=== PATIENT | male | born 1950 | race Caucasian/White ===

== ENCOUNTER 2019-08-20 07:15 | Outpatient (RCR) | payer MEDICARE, MEDICAID, SELFPAY | END 2019-08-21 23:59 | disposition home or self-care (01) | LOC: RAD 07:15 | PROVIDERS: Family Provider Family Medicine; PCP Registered Nurse; Visit Provider Nurse Practitioner Family | DX: L97.822 Non-pressure chronic ulcer of other part of left lower leg with fat layer exposed (principal); S61.021A Laceration with foreign body of right thumb without damage to nail, initial encounter; W27.8XXA Contact with other nonpowered hand tool, initial encounter | CPT/HCPCS: 87070; 87077; 87186; 87205; 99204; 99214 ==

== ENCOUNTER 2019-09-16 08:28 | Outpatient (RCR) | payer MEDICARE, MEDICAID, SELFPAY | END 2019-09-21 23:59 | disposition home or self-care (01) | LOC: WOUND 08:28 | PROVIDERS: Family Provider Family Medicine; PCP Registered Nurse; Visit Provider Nurse Practitioner Family | DX: S81.002A Unspecified open wound, left knee, initial encounter (principal); X58.XXXA Exposure to other specified factors, initial encounter; L08.9 Local infection of the skin and subcutaneous tissue, unspecified | CPT/HCPCS: 99212; 99213; 99214; G0463 ==

== ENCOUNTER → 2019-09-27 11:00 | Outpatient (BNVA) | payer MEDICARE, MEDICAID, SELFPAY | PROVIDERS: Family Provider Family Medicine; PCP Registered Nurse; Visit Provider Registered Nurse | DX: I10 Essential (primary) hypertension (principal); E78.5 Hyperlipidemia, unspecified; E03.9 Hypothyroidism, unspecified; M67.911 Unspecified disorder of synovium and tendon, right shoulder; I25.810 Atherosclerosis of coronary artery bypass graft(s) without angina pectoris | CPT/HCPCS: 80053; 80061; 84443; 85025 ==

== ENCOUNTER → 2020-02-21 10:16 | Outpatient (BNVA) | payer MEDICARE, MEDICAID, SELFPAY | PROVIDERS: Family Provider Family Medicine; PCP Registered Nurse; Visit Provider Registered Nurse | DX: I10 Essential (primary) hypertension (principal); M25.541 Pain in joints of right hand; M25.542 Pain in joints of left hand | CPT/HCPCS: 80053; 85025; 85651; 86140; 86431 ==

== ENCOUNTER → 2020-03-23 11:30 | Outpatient (BNVA) | payer MEDICARE, MEDICAID, SELFPAY | PROVIDERS: Family Provider Family Medicine; PCP Registered Nurse; Visit Provider Registered Nurse | DX: L02.416 Cutaneous abscess of left lower limb (principal); M25.541 Pain in joints of right hand; M25.542 Pain in joints of left hand | CPT/HCPCS: 84450; 87070; 87077; 87186 ==

== ENCOUNTER 2020-04-10 14:00 | Outpatient (CLI) | payer MEDICARE, MEDICAID, SELFPAY | END 2020-04-10 14:01 | disposition home or self-care (01) | LOC: WOUND 14:01 | PROVIDERS: Family Provider Family Medicine; PCP Registered Nurse; Visit Provider Thoracic Surgery (Cardiothoracic Vascular Surgery) | DX: L97.822 Non-pressure chronic ulcer of other part of left lower leg with fat layer exposed (principal); L97.512 Non-pressure chronic ulcer of other part of right foot with fat layer exposed; M79.671 Pain in right foot; L53.9 Erythematous condition, unspecified; L97.519 Non-pressure chronic ulcer of other part of right foot with unspecified severity; M77.31 Calcaneal spur, right foot | CPT/HCPCS: 11042; 11043; 36415; 73630; 80048; 83036; 85025; 85651; 87070; 87077; 87176; 87186; 87205; G0463; L3260 ==

== ENCOUNTER 2020-04-10 16:55 | Outpatient (CLI) | payer MEDICARE, MEDICAID, SELFPAY ==
--- NOTE | 2020-04-10 | XRR_ITS ---
PROCEDURE INFORMATION: Exam: XR Right Foot Complete Exam date and time: 04/10/2020 5:09 PM Age: 69 years old Clinical indication: Pain and condition or disease; Other: Redness, nonhealing ulcer; Foot; Right; Additional info: Pain, redness, nonhealing ulcer TECHNIQUE: Imaging protocol: XR Right foot. Views: Frontal, lateral, and oblique views. COMPARISON: No relevant prior studies available. FINDINGS: Bones/joints: No destructive bony process identified. Medial and lateral articular marginal hypertrophy of the 1st metatarsophalangeal joint with medial and lateral para-articular ossifications. Hypertrophy of the lateral 1st metatarsophalangeal joint sesamoid. A moderate plantar calcaneal ossified spur is present. Soft tissues: Mild medial soft tissue swelling at the 1st metatarsophalangeal joint. Severe Achilles' tendon enthesis of the calcaneus with tendon calcification. XR/XR foot RT min 3V* [id number] IMPRESSION: 1. No destructive bony process identified. 2. Plantar calcaneal spur. 3. Achilles tendon insertional enthesopathy/chronic tendinopathy.
[2020-04-10 17:55] LABS: Basophils # 0.1 10^3/uL (0.0-0.1); Basophils % 0.7 %; Eosinophils # 0.1 10^3/uL (0.0-0.8); Eosinophils % 0.8 %; Hematocrit 40.6 % (42.0-52.0); Lymphocytes # 2.4 10^3/uL (0.8-4.8); Lymphocytes % 32.9 %; Mean Corpuscular Volume 93.8 fL (80-94); Mean Platelet Volume 8.8 fL (7.4-10.4); Monocytes # 0.9 10^3/uL (0.2-0.9); Monocytes % 12.5 %; Neutrophils # 3.74 10^3/uL (1.8-7.7); Neutrophils % 52.1 %; Nucleated Red Blood Cells % 0 %; Platelet Count 408 10^3/cmm (130-400); Red Blood Count 4.33 10^6/uL (4.1-5.3); Red Cell Distribution Width 14.4 % (12.1-15.1); White Blood Count 7.2 10^3/uL (4.0-10.0)
[2020-04-10 18:10] LABS: Estmated Average Glucose 123; Hemoglobin A1C 5.9 % (4.0-6.0)
[2020-04-10 18:28] LABS: Blood Urea Nitrogen 11 mg/dL (8-23); Calcium 9.1 mg/dL (8.5-10.5); Carbon Dioxide 25 mmol/L (22-29); Chloride 102 mmol/L (98-107); Glomerular Filtration Rate 96.1 mL/min (90-130); Glucose 107 mg/dL (65-115); Osmolality Calculated 286 mOsm/kg (285-295); Sodium 138 mmol/L (136-145)
[2020-04-10 19:32] LABS: Erythrocyte Sedimentation Rate 29 mm/hr (0-10)
== END 2020-04-10 16:56 | disposition home or self-care (01) ==
LOC: LAB 16:57 → RAD 16:58
PROVIDERS: Family Provider Family Medicine; PCP Registered Nurse; Visit Provider Thoracic Surgery (Cardiothoracic Vascular Surgery)
DX: M79.671 Pain in right foot (principal); L53.9 Erythematous condition, unspecified; L97.519 Non-pressure chronic ulcer of other part of right foot with unspecified severity; M77.31 Calcaneal spur, right foot
CPT/HCPCS: 36415; 73630; 80048; 83036; 85025; 85651

== ENCOUNTER → 2020-04-13 16:58 | Outpatient (BNVA) | payer MEDICARE, MEDICAID, SELFPAY | PROVIDERS: Family Provider Family Medicine; PCP Registered Nurse; Visit Provider Dermatology | DX: D48.9 Neoplasm of uncertain behavior, unspecified (principal) | CPT/HCPCS: 88304 ==

== ENCOUNTER 2020-04-17 14:00 | Outpatient (CLI) | payer MEDICARE, MEDICAID, SELFPAY | END 2020-04-17 14:01 | disposition home or self-care (01) | LOC: WOUND 14:02 | PROVIDERS: Family Provider Family Medicine; PCP Registered Nurse; Visit Provider Thoracic Surgery (Cardiothoracic Vascular Surgery) | DX: L97.522 Non-pressure chronic ulcer of other part of left foot with fat layer exposed (principal); L97.512 Non-pressure chronic ulcer of other part of right foot with fat layer exposed | CPT/HCPCS: 11042 ==

== ENCOUNTER 2020-04-27 14:26 | Outpatient (CLI) | payer MEDICARE, MEDICAID, SELFPAY | END 2020-04-27 14:27 | disposition home or self-care (01) | LOC: WOUND 14:27 | PROVIDERS: Family Provider Family Medicine; PCP Registered Nurse; Visit Provider Thoracic Surgery (Cardiothoracic Vascular Surgery) | DX: L97.822 Non-pressure chronic ulcer of other part of left lower leg with fat layer exposed (principal) | CPT/HCPCS: 11042 ==

== ENCOUNTER 2020-05-11 13:46 | Outpatient (CLI) | payer MEDICARE, MEDICAID, SELFPAY | END 2020-05-11 13:47 | disposition home or self-care (01) | LOC: WOUND 13:48 | PROVIDERS: Family Provider Family Medicine; PCP Registered Nurse; Visit Provider Nurse Practitioner Family | DX: L97.822 Non-pressure chronic ulcer of other part of left lower leg with fat layer exposed (principal) | CPT/HCPCS: 11042 ==

== ENCOUNTER 2020-05-25 14:03 | Outpatient (CLI) | payer MEDICARE, MEDICAID, SELFPAY ==
--- NOTE | 2020-05-25 15:54 | XRR_ITS ---
PROCEDURE INFORMATION: Exam: XR Left Knee Exam date and time: 05/25/2020 3:55 PM Age: 69 years old Clinical indication: Condition or disease; Other: Left knee abscess TECHNIQUE: Imaging protocol: XR Left knee. Views: 3 views. COMPARISON: No relevant prior studies available. FINDINGS: Bones/joints: There is a probable osteochondral body superimposed over the superior pole of the patella measuring 7 mm in size. On the lateral view, it also appears may be a subtle osteochondral body or fabella posterior to the femoral condyles measuring 6 mm in size. There is enthesopathy of the patella and anterior tibial tuberosity. There is a physiologic amount of fluid in the knee joint. There is no acute fracture or dislocation. Mild osteoarthritic changes are noted. Soft tissues: There is mild soft tissue edema. No foreign body. No gas in the soft tissues. XR/XR knee LT 3V* [id number] IMPRESSION: No acute bony abnormality. No osteomyelitis or fracture. There is enthesopathy.
== END 2020-05-25 14:04 | disposition home or self-care (01) ==
LOC: WOUND 14:04
PROVIDERS: Family Provider Family Medicine; PCP Registered Nurse; Visit Provider Thoracic Surgery (Cardiothoracic Vascular Surgery)
DX: L97.822 Non-pressure chronic ulcer of other part of left lower leg with fat layer exposed (principal); I96 Gangrene, not elsewhere classified
CPT/HCPCS: 11042; 73562

== ENCOUNTER 2020-06-29 13:24 | Outpatient (CLI) | payer MEDICARE, MEDICAID, SELFPAY | END 2020-06-29 13:25 | disposition home or self-care (01) | LOC: WOUND 13:25 | PROVIDERS: Family Provider Family Medicine; PCP Registered Nurse; Visit Provider Nurse Practitioner Family | DX: Z09 Encounter for follow-up examination after completed treatment for conditions other than malignant neoplasm (principal) | CPT/HCPCS: 99212 ==

== ENCOUNTER → 2020-12-06 13:59 | Outpatient (BNVA) | payer MEDICARE, MEDICAID, SELFPAY | PROVIDERS: Family Provider Family Medicine; PCP Registered Nurse; Visit Provider Registered Nurse | DX: E03.9 Hypothyroidism, unspecified (principal) | CPT/HCPCS: 84443 ==

== ENCOUNTER → 2021-03-13 00:01 | Outpatient (BNVA) | payer MEDICARE, MEDICAID, SELFPAY | PROVIDERS: Family Provider Family Medicine; PCP Registered Nurse; Visit Provider Registered Nurse | DX: I10 Essential (primary) hypertension (principal); E78.5 Hyperlipidemia, unspecified | CPT/HCPCS: 80053; 80061; 85025 ==

== ENCOUNTER 2021-03-29 11:05 | Outpatient (CLI) | payer MEDICARE, MEDICAID, SELFPAY ==
--- NOTE | 2021-03-29 11:16 | CT_ITS ---
WS: [id number] LDCT LUNG CANCER SCREENING TECHNIQUE: Noncontrast CT of the chest with coronal and sagittal reformatted images. CLINICAL INFORMATION: Z12.2 - Encounter for screening for malignant neoplasm of... COMPARISON: None. DLP: 53.4 mGy.cm DIvol: 1.[address] scans at [facility] use at least one of these dose optimization techniques: automat ed exposure control; mA and/or kV adjustment per patient size (includes targeted exams where dose is matched to clinical indication); or iterative reconstruction. FINDINGS: Mild chronic emphysematous changes. No acute pulmonary infiltrates. No focal pneumonia or pleural flu id. Small fibrotic opacity right lung apex measuring 3-4 mm. Adrenal glands are normal. Small esophag eal hiatal hernia. Aortic calcification. Coronary calcification. No mediastinal or hilar lymphadenopa thy. Hypertrophic changes thoracic spine. CT/CT lung screening [id number] IMPRESSION: LUNG-RADS: 2-Benign Appearance or Behavior FOLLOW UP: 12 Month: Continue annual screening with LDCT
== END 2021-03-29 11:06 | disposition home or self-care (01) ==
LOC: CT 11:06
PROVIDERS: PCP Registered Nurse; Visit Provider Registered Nurse
DX: Z12.2 Encounter for screening for malignant neoplasm of respiratory organs (principal); F17.210 Nicotine dependence, cigarettes, uncomplicated
CPT/HCPCS: 71271

== ENCOUNTER 2021-04-25 09:48 | Outpatient (CLI) | payer MEDICARE, MEDICAID, SELFPAY ==
--- NOTE | 2021-04-25 10:15 | USCV_ITS ---
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 Technologist: Ryanne Calderon Exam Location: [facility] [place] Indication: STENOSIS Risk Factors: Previous Vascular Surgery: Right Brachial BP: / Left Brachial BP: / Right Left Velocity (cm/s) Spectral Plaque Velocity (cm/s) Spectral Plaque Syst/Diast Broadening Syst/Diast Broadening 111.90/20.50 Prox CCA 67.60 / 22.50 102.50/21.40 Mid CCA 83.10 / 27.20 85.40/ 21.40 Distal CCA 323.20/ 87.00 64.20/ 16.00 Prox ICA 86.00 / 14.30 89.70/ 19.70 Mid ICA 63.90 / 20.60 78.90/ 19.40 Distal ICA 63.90 / 22.00 109.40 ECA 156.90 0.80 ICA/CCA 1.27 Antegrade Vertebral Antegrade 52.00/ 14.80 cm/s 44.70/ 10.60 cm/s Tri Subclavian Tri 165.6 181.8 0 0 CONCLUSIONS Right ICA stenosis <50%. Mild atheromatous plaque right carotid bulb/ICA. Left ICA stenosis <50%. Mild atheromatous plaque left carotid bulb/ICA. Normal antegrade Doppler flow noted in the right vertebral artery. Normal antegrade Doppler flow noted in the left vertebral artery. Nagi Arzola MD (Electronically Signed) Final Date: 26 April 2021 10:48 S
== END 2021-04-25 09:49 | disposition home or self-care (01) ==
LOC: US 09:50
PROVIDERS: PCP Registered Nurse; Visit Provider Registered Nurse
DX: I10 Essential (primary) hypertension (principal); I25.810 Atherosclerosis of coronary artery bypass graft(s) without angina pectoris; I65.23 Occlusion and stenosis of bilateral carotid arteries
CPT/HCPCS: 93880

== ENCOUNTER → 2022-01-25 11:08 | Outpatient (BNVA) | payer MEDICARE, MEDICAID, SELFPAY | PROVIDERS: PCP Registered Nurse; Visit Provider Registered Nurse | DX: I10 Essential (primary) hypertension (principal); E03.9 Hypothyroidism, unspecified; E78.5 Hyperlipidemia, unspecified | CPT/HCPCS: 80053; 80061; 84443; 85025 ==

== ENCOUNTER → 2022-05-14 08:28 | Outpatient (BNVA) | payer MEDICARE, MEDICAID, SELFPAY | PROVIDERS: PCP Registered Nurse; Visit Provider Orthopaedic Surgery | DX: M71.162 Other infective bursitis, left knee (principal); B96.89 Other specified bacterial agents as the cause of diseases classified elsewhere | CPT/HCPCS: 99213 ==

== ENCOUNTER → 2022-05-29 09:37 | Outpatient (BNVA) | payer MEDICARE, MEDICAID, SELFPAY | PROVIDERS: PCP Registered Nurse; Visit Provider Orthopaedic Surgery | DX: M70.40 Prepatellar bursitis, unspecified knee (principal) | CPT/HCPCS: 99212 ==

== ENCOUNTER → 2022-06-25 09:02 | Outpatient (BNVA) | payer MEDICARE, MEDICAID, SELFPAY | PROVIDERS: PCP Registered Nurse; Visit Provider Orthopaedic Surgery | DX: M70.42 Prepatellar bursitis, left knee (principal) | CPT/HCPCS: 99213 ==

== ENCOUNTER → 2022-06-28 10:55 | Outpatient (BNVA) | payer MEDICARE, MEDICAID, SELFPAY | PROVIDERS: PCP Registered Nurse; Visit Provider Internal Medicine Cardiovascular Disease | DX: I25.810 Atherosclerosis of coronary artery bypass graft(s) without angina pectoris (principal); I10 Essential (primary) hypertension; Z95.5 Presence of coronary angioplasty implant and graft; F17.210 Nicotine dependence, cigarettes, uncomplicated | CPT/HCPCS: 93005; 99214; Q3014 ==

== ENCOUNTER 2022-07-04 09:02 | Day surgery (SDC) | payer MEDICARE, MEDICAID, SELFPAY ==
[2022-07-03 12:56] VITALS: BMI 36.6
[2022-07-04] VITALS (8 sets, daily range): BP systolic 109–160; BP diastolic 60–90; PULSE 54–73; RESP 14–19; TEMP 36.2–36.5; O2SAT 94–100
[2022-07-04] MEDS: sodium chloride 0.9% 1,000 ML 30 ML IV (09:39)
--- NOTE | 2022-07-04 10:09 | ECG_ITS ---
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 Measurements Intervals [place] Rate: 50 P: 60 DE: 234 QRS: 34 QRSD: 110 T: 55 QT: 444 QTc: 408 Interpretive Statements SINUS BRADYCARDIA WITH FIRST DEGREE AV BLOCK No previous ECG available for comparison Electronically Signed On 07-04-2022 20:48:20 DATE PITTER by Anita Donnelly M.D. [email or web address] [id number]
--- NOTE | 2022-07-04 10:25 | P.ANESASSM_ITS ---
Pre-Anesthetic Assessment Height/Weight: Height 1.65 m Weight 99.79 kg Temp Pulse Resp BP Pulse Ox O2 Del Method 97.7 F 71 18 160/90 95 07/04/22 09:20 07/04/22 09:20 07/04/22 09:20 07/04/22 09:20 07/04/22 09:20 07/04/22 09:42 Preop Diagnosis: [place]-Schlatter's fragment left tibia Operation Date: 07/04/22 10:15 Proposed Procedures p left tibial tubercle ossicle excision/ 01695,M92.52(Left) - Etienne Garcia MD Familial anesthetic complications: None Was Beta Crow taken within 24 hours: N/A Was Clonidine taken within 24 hours: N/A Last intake: Intake Last Liquid Date 07/03/22 Last Liquid Time 17:00 Last Solid Date 07/03/22 Last Solid Time 17:00 Social Tobacco and No alcohol Exam alert, oriented x 3, clear to auscultation bilaterally and regular rate & rhythm Airway Mallampati: Class IV Dentition: other (no teeth) Pulmonary Chronic Obstructive Pulmonary Disease CV/HEM Coronary Artery Disease (stent in LAD), Hypertension and Myocardial Infarction GI Gastroesophageal Reflux Disease (patient denies having GERD) Metabolic Hyperlipidemia and Thyroid Disease Neuropsych Transient Ischemic Attack (2004) Anesthetic Plan ASA status: 3 Anesthesia: General Risk of > 500 ml blood loss (7ml/kg in children): No Medications/Allergies Home Medications Medication Instructions Recorded Confirmed Last Taken Type aspirin 81 mg tablet,delayed 81 mg PO DAILY 08/25/19 07/03/22 07/03/22 History release valsartan 160 mg tablet 160 mg PO DAILY #90 tabs 07/12/21 07/03/22 07/02/22 Rx sildenafil 50 mg tablet (Viagra) 50 mg PO DAILY PRN sexual activity 02/12/22 07/03/22 Unknown Rx 30 days #10 tabs acetaminophen 325 mg capsule 1,000 mg PO BID 06/28/22 07/03/22 07/03/22 History albuterol sulfate 90 mcg/actuation 1 inh inhalation QID 07/03/22 07/03/22 07/02/22 History aerosol inhaler amlodipine 10 mg tablet 10 mg PO DAILY 07/04/22 07/04/22 07/03/22 History atorvastatin 40 mg tablet 40 mg PO DAILY 07/04/22 07/04/22 07/03/22 History clopidogrel 75 mg tablet 75 mg PO DAILY 07/04/22 07/04/22 06/24/22 History fenofibrate 160 mg tablet 160 mg PO DAILY 07/04/22 07/04/22 07/03/22 History fluticasone furoate 100 1 inh inhalation DAILY 07/04/22 07/04/22 07/03/22 History mcg-vilanterol 25 mcg/dose inhalation powder (Breo Ellipta) levothyroxine 75 mcg tablet 75 mcg PO DAILY 07/04/22 07/04/22 07/03/22 History montelukast 10 mg tablet 10 mg PO DAILY 07/04/22 07/04/22 07/03/22 History Allergies Allergy/AdvReac Type Severity Reaction Status Date / Time codeine Allergy Unknown Unknown Verified 07/03/22 12:49 Penicillins Allergy Unknown Unknown Verified 07/03/22 12:49 tetanus and diphtheria Allergy Unknown Unknown Verified 07/03/22 12:49 toxoids Current Medications Generic Name Dose Route Start Last Admin Trade Name Freq PRN Reason Stop Dose Admin Sodium Chloride 1,000 mls @ 30 mls/hr 07/04/22 09:15 07/04/22 09:39 Sodium Chloride 0.9% IV 07/05/22 09:14 30 mls/hr .Q24H IGNACIO Administration PFSH Anesthesia Medical History (Updated 06/28/22 @ 11:09 by Varsha Nicole MD) Erectile dysfunction GERD (gastroesophageal reflux disease) History of nonmelanoma skin cancer HTN (hypertension) Seborrheic keratoses Surgical History History of back surgery S/P angioplasty S/P appendectomy S/P routine circumcision S/P vasectomy Family History Mother , Colon CA age 61 Hypertension Cancer Father , Liver CA age 61 Cancer Stroke Other CAD (coronary artery disease) Social History Smoking and tobacco status: current every day smoker cigarettes Packs smoked per day: 0.5 Alcohol intake: never Adopted: No Caregiver/support person: No Lives independently: No Household members: significant other Current occupational status: disabled History of recent travel: No Current gender identity: Male Data Anesthesia 07/04/22 09:36 BMP 07/04/22 09:36 Sodium 140 Chloride 105 Carbon Dioxide 23 BUN 10 Creatinine 0.7 Glucose 100 Calcium 9.1 Cardiac Studies: No Data to Display
--- NOTE | 2022-07-04 10:58 | W.PM.OPSUD ---
Surgery/Procedure H&P Update DATE OF PROCEDURE: July 04, 2022 DATE H&P PERFORMED: 06/25/22 H&P UPDATE INFORMATION: I have reviewed H&P completed within last 30 days PREOP DIAGNOSIS: [place]-Schlatter's fragment left tibia PLANNED PROCEDURE: Operation Date: 07/04/22 10:15 Proposed Procedures p left tibial tubercle ossicle excision/ 56495,M92.52(Left) - Etienne Garcia MD
--- NOTE | 2022-07-04 12:13 | PM.OP ---
Operative Report Date of procedure: July 04, 2022 Pre-op diagnosis: Preop Diagnosis [place]-Schlatter's fragment left tibia Post-op diagnosis: same Procedure done: Excision tibial tubercle prominence left knee Pathology: none sent Surgeon: Etienne Garcia Anesthesia: General Estimated blood loss (mL): 2 Tourniquet time (min): 12 Findings: The patient had prominent ossicle of bone anterior to the tibial tubercle beneath a area of bursal thickening. There was no suggestion of deep infection Condition: stable Disposition: PACU Brief History: Mr. Zheng is a 72-year-old male with recurrent infected bursitis over a prominent Drake slaughters ossicle above bone. He elected surgical excision to eliminate the bony prominence and prevent recurrent infection Procedure: The patient was taken to the operating room and given a general anesthesia. He is prepped and draped in supine position with his left leg exposed. A timeout was performed. The tourniquet was inflated 250 mmHg. A longitudinal incision was made 3 cm over the tibial tubercle. Dissection was carried down through the thickened bursal skin and the bursal tissue to the tibial tubercle. The prominent ossicle of bone was palpated. Dissection was carried down full thickness elevating the patellar tendon medially and laterally over a distance of approximately 6 mm in each direction over the prominent bone. The ossicle was removed and the more distal prominence of the tibial tubercle debrided flush. The knee was irrigated with saline. The patella tendon was closed with 2-0 Vicryl, burring stitches deep in the tendon. Subcutaneous tissues were closed with 2-0 Vicryl. The skin was closed with 3-0 Prolene.
[2022-07-04] MEDS: oxyCODONE 5 mg IR Tab/Cap PO (12:54)
--- NOTE | 2022-07-04 12:55 | ANE.PACU2 ---
Inpatient post-anesthesia follow up: Airway intact: Yes Vital signs: Temperature 97.4 F Pulse Rate 73 Respiratory Rate 18 Blood Pressure 109/62 Pulse Oximetry 95 Oxygen Delivery Me thod Room Air Oxygen Flow Rate 6 Fraction of Inspir ed Oxygen Hydration adequate: Yes Nausea and vomiting: No Pain level: 1 Mental status: Baseline
== END 2022-07-04 13:17 | disposition home or self-care (01) ==
PROVIDERS: PCP Registered Nurse; Visit Provider Orthopaedic Surgery
PROC: (CPT 27360; principal; 2022-07-04 10:05)
DX: M92.522 Juvenile osteochondrosis of tibia tubercle, left leg (principal); J44.9 Chronic obstructive pulmonary disease, unspecified; I25.10 Atherosclerotic heart disease of native coronary artery without angina pectoris; Z95.5 Presence of coronary angioplasty implant and graft; I10 Essential (primary) hypertension; I25.2 Old myocardial infarction; E78.5 Hyperlipidemia, unspecified; Z86.73 Personal history of transient ischemic attack (TIA), and cerebral infarction without residual deficits; Z79.82 Long term (current) use of aspirin; K21.9 Gastro-esophageal reflux disease without esophagitis; F17.210 Nicotine dependence, cigarettes, uncomplicated
CPT/HCPCS: 27360; 93005; J1100; J2405; J2704; J3010; J7030

== ENCOUNTER → 2022-07-16 09:33 | Outpatient (BNVA) | payer MEDICARE, MEDICAID, SELFPAY | PROVIDERS: PCP Registered Nurse; Visit Provider Registered Nurse | DX: I10 Essential (primary) hypertension (principal); E78.5 Hyperlipidemia, unspecified; E03.9 Hypothyroidism, unspecified; F17.210 Nicotine dependence, cigarettes, uncomplicated; Z12.2 Encounter for screening for malignant neoplasm of respiratory organs; Z00.00 Encounter for general adult medical examination without abnormal findings; Z71.89 Other specified counseling | CPT/HCPCS: 80053; 80061; 84443; 85025 ==

== ENCOUNTER → 2022-07-30 10:22 | Outpatient (BNVA) | payer MEDICARE, MEDICAID, SELFPAY | PROVIDERS: PCP Registered Nurse; Visit Provider Orthopaedic Surgery | DX: M70.42 Prepatellar bursitis, left knee (principal) | CPT/HCPCS: 99024 ==

== ENCOUNTER → 2023-03-07 10:12 | Outpatient (BNVA) | payer MEDICARE, MEDICAID, SELFPAY | PROVIDERS: PCP Registered Nurse; Visit Provider Internal Medicine Cardiovascular Disease | DX: R06.02 Shortness of breath (principal); I25.810 Atherosclerosis of coronary artery bypass graft(s) without angina pectoris; I10 Essential (primary) hypertension; Z95.5 Presence of coronary angioplasty implant and graft; F17.210 Nicotine dependence, cigarettes, uncomplicated | CPT/HCPCS: 99214 ==

== ENCOUNTER 2023-03-19 11:52 | Outpatient (CLI) | payer MEDICARE, MEDICAID, SELFPAY ==
--- NOTE | 2023-03-19 13:00 | USCV_ITS ---
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 Technologist: Lindy Colunga [place] [facility] [place]ication: CCA STENOSIS Risk Factors: Previous Vascular Surgery: Right Brachial BP: / Left Brachial BP: / Right Left Velocity (cm/s) Spectral Plaque Velocity (cm/s) Spectral Plaque Syst/Diast Broadening Syst/Diast Broadening 115.80/24.30 Prox CCA 60.10 / 22.70 Hetro 123.50/32.00 Mid CCA 96.60 / 28.60 Hetro 93.70/ 17.60 Distal CCA 394.30/ 86.80 Homo 110.30/25.40 Hetro Prox ICA 104.60/ 25.70 Hetro 115.80/30.90 Mid ICA 90.10 / 29.00 Hetro 115.30/31.50 Distal ICA 63.10 / 32.50 125.70 ECA 120.10 0.94 ICA/CCA 1.08 Antegrade Vertebral Antegrade 48.30/ 15.80 cm/s 44.40/ 11.80 cm/s Bi Subclavian Tri 108.4 114.4 0 0 FINDINGS Comparison:. 04/25/21. Abnormal left carotid artery, diffuse soft plaque and thickening with scattered calcifications. Distal CCA velocity is elevated. Parvus tardus waveform left ICA. Mild right carotid atherosclerosis. Antegrade vertebral arteries. CONCLUSIONS Diffuse left carotid disease with progression. Significant soft plaque with calcification. High grade stenosis distal CCA. Recommend evaluation by vascular surgery and carotid CTA. Right ICA stenosis < 50%. Dr. Saritha Montano DO (Electronically Signed) Final Date: 19 March 2023 14:16 S
== END 2023-03-19 11:53 | disposition home or self-care (01) ==
PROVIDERS: PCP Registered Nurse; Visit Provider Registered Nurse
DX: I65.23 Occlusion and stenosis of bilateral carotid arteries (principal)
CPT/HCPCS: 93880

== ENCOUNTER → 2023-04-01 14:05 | Outpatient (BNVA) | payer MEDICARE, MEDICAID, SELFPAY | PROVIDERS: PCP Registered Nurse; Referring Provider Registered Nurse; Visit Provider Thoracic Surgery (Cardiothoracic Vascular Surgery) | DX: I65.29 Occlusion and stenosis of unspecified carotid artery (principal); I10 Essential (primary) hypertension; F17.210 Nicotine dependence, cigarettes, uncomplicated | CPT/HCPCS: 99203 ==

== ENCOUNTER 2023-04-18 07:53 | Outpatient (CLI) | payer MEDICARE, MEDICAID, SELFPAY ==
--- NOTE | 2023-04-18 08:30 | CT_ITS ---
WS: [id number] CTA NECK TECHNIQUE: Contrast enhanced CTA of the neck with coronal and sagittal reformatted images and maximum intensity projection (MIP) images. NASCET criteria utilized. CLINICAL INFORMATION: carotid stenosis COMPARISON: Ultrasound carotid 03/19/2023 DLP: 427.[address] scans at [facility] use at least one of these dose optimization techniques: automated e xposure control; mA and/or kV adjustment per patient size (includes targeted exams where dose is matc hed to clinical indication); or iterative reconstruction. FINDINGS: RIGHT: RIGHT common carotid artery is patent. Mild atheromatous plaque RIGHT carotid bulb extending i nto the ICA. RIGHT ICA is patent to the skull base. Cavernous carotid calcification. LEFT: LEFT common carotid artery is patent. Circumferential smooth tapering with stenosis in the LEFT distal common carotid artery which remains patent. Stenosis measures approximately 50%. Moderate ath eromatous plaque LEFT carotid bulb extending to the ICA without significant stenosis. LEFT ICA is pat ent to the skull base. Cavernous carotid calcification. RIGHT dominant vertebral artery. Smaller but patent LEFT vertebral artery. Vertebral arteries are pat ent to the basilar junction. Both ICAs are patent at the skull base. Cavernous carotid calcification. Partially visualized intracr anial ambler of Hagen. Small A1 segments. Patent LEFT posterior communicating artery. Mastoid air cells are well aerated. Paranasal sinuses are well aerated. Noncalcified nodule RIGHT upp er lobe measuring 5 mm. Emphysematous changes in the lung apices. Normal posterior nasopharynx. Malaika l parapharyngeal fat. Parotid glands are normal. Normal submandibular glands. Mild spondylitic change s cervical spine. Disc osteophyte complexes at C5-C6 and C6-C7 with mild central canal stenosis. IMPRESSION: 1. No significant RIGHT ICA stenosis. 2. Smooth tapered narrowing in the distal LEFT common carotid artery with approximately 50% stenosis . No significant stenosis in the LEFT proximal ICA. LEFT ICA remains patent to the skull base. 3. RIGHT dominant vertebral artery. Both vertebral arteries are patent. 4. Noncalcified nodule RIGHT upper lobe measuring 5 mm. This is stable since the prior lung screenin g CT 03/29/21 5. LEFT carotid originates from the innominate.
[2023-04-18 08:39] LABS: Blood Urea Nitrogen 11 mg/dL (8-23)
[2023-04-18] MEDS: iohexol 350 mg/mL 500 mL Btl (per mL) IV (08:49)
== END 2023-04-18 07:54 | disposition home or self-care (01) ==
LOC: RAD 07:53
PROVIDERS: PCP Registered Nurse; Visit Provider Thoracic Surgery (Cardiothoracic Vascular Surgery)
DX: I65.23 Occlusion and stenosis of bilateral carotid arteries (principal); R91.1 Solitary pulmonary nodule
CPT/HCPCS: 70498; 82565; 84520; Q9967

== ENCOUNTER 2023-04-24 08:40 | Outpatient (CLI) | payer MEDICARE, MEDICAID, SELFPAY ==
[2023-04-24 09:22] VITALS: BMI 31.9
--- NOTE | 2023-04-24 09:29 | ECG_ITS ---
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 Interpretive Statements NAME OF STUDY: EXERCISE SESTAMIBI STRESS TEST INDICATION: EXERTIONAL SOB Baseline blood pressure of 141/68 mm Hg, heart rate of 50 beats per minute. EKG showed sinus rhythm, normal axis with nonspecific T wave inversion and biphasic T waves in lead II, 3, aVF V4 to V6. ??? The patient exercised for 7 minutes and 25 seconds on a modified Ted protocol. Patient attained a maximum heart rate of 132 beats per minute(88% of the maximum predicted heart rate) with a blood pressure at the peak exercise of 199/83 mm Hg. The EKG at the peak exercise revealed sinus tachycardia with no significant ST-T wave changes. Patient did not have any chest pain or any significant arrhythmis with the exercise??? During the recovery phase, there were no new changes. ??? Blood pressure at the end of the recovery phase was 163/81 mm Hg with a heart rate of 88 beats per minute. ??? CONCLUSION: 1. Normal EKG response to treadmill exercise. 2. No exercise-induced chest pain or cardiac arrhythmia. 3. Excellent exercise tolerance, attained a maximum of 9 METs. 4. Baseline hypertension with normal response to exercise. 5. Perfusion scan will be documented separately. Electronically Signed On 04-27-2023 9:29:24 DRY ICE MAKER by Varsha Nicole M.D. [id number]
--- NOTE | 2023-04-24 09:30 | NMCV_ITS ---
NM denise perf SPECT r/s* [id number] Cindy Zheng Age: 72 Gender: M : 1950 Exam Date: 04/24/2023 10:07 Ordering Phys: Varsha Nicole MD ([email or web address]) Technologist: KIMBERLY Lucero Exam Location: [facility] Indications: SHORTNESS OF BREATH, ATHEROSCLEROTIC HEART DISEASE STRESS TEST [facility] IMAGE PROTOCOL Rest/Stress 1 Exercise Day Radiopharmaceutical Dose (mCi) Administration Site Administered by Rest: Tc-99m 10.9 IV KIMBERLY Lucero Sestamibi Stress:Tc-99m 32.6 IV KIMBERLY Machado Sestamibi Rest: 24-Apr-2023 60 Discovery 630 Stress: 24-Apr-2023 15 Discovery 630 Radiopharmaceutical was injected at 85 % maximum heart rate. Images obtained in supine and prone position. SPECT RESULTS Technical Quality: Excellent Raw Data Analysis: Normal Image Corrections: No attenuation or motion correction applied Summed Stress Score: 1 Summed Rest Score: 2 Summed Difference Score: 1 PERFUSION FINDINGS SPECT images demonstrate homogeneous tracer distribution throughout the myocardium. FUNCTIONAL RESULTS (calculated via Gated SPECT) Stress Image LV EF (%): 70 Stress EDV (mL):102 TID: 0.73 Stress ESV (mL):31 FUNCTIONAL FINDINGS: The left ventricle is normal in size. Transient Ischemia Dilatation of 0.73. The left ventricular ejection fraction is normal with a value of 70%. There is normal left ventricular wall thickening. Normal end-diastolic and end-systolic volumes. IMPRESSIONS 1. Myocardial perfusion imaging is normal. 2. Overall left ventricular systolic function is normal without regional wall motion abnormalities, LVEF=70%. 3. EKG portion of the study will be reported separately. 4. Scan indicates low risk for cardiac events. Varsha Nicole MD (Electronically Signed) Final Date: 24 April 2023 16:43 S
[2023-04-24 11:49] VITALS: BP 163/81; PULSE 93
== END 2023-04-24 08:41 | disposition home or self-care (01) ==
LOC: CDL 08:41
PROVIDERS: PCP Registered Nurse; Visit Provider Internal Medicine Cardiovascular Disease
DX: R06.02 Shortness of breath (principal); I25.10 Atherosclerotic heart disease of native coronary artery without angina pectoris
CPT/HCPCS: 36415; 78452; 93017; 96374; A9500

== ENCOUNTER → 2023-04-29 13:27 | Outpatient (BNVA) | payer MEDICARE, MEDICAID, SELFPAY | PROVIDERS: PCP Registered Nurse; Visit Provider Thoracic Surgery (Cardiothoracic Vascular Surgery) | DX: I65.22 Occlusion and stenosis of left carotid artery (principal); I10 Essential (primary) hypertension; F17.210 Nicotine dependence, cigarettes, uncomplicated | CPT/HCPCS: 99213 ==

== ENCOUNTER → 2023-06-17 12:56 | Outpatient (BNVA) | payer MEDICARE, MEDICAID, SELFPAY | PROVIDERS: PCP Registered Nurse; Visit Provider Emergency Medicine | DX: M12.579 Traumatic arthropathy, unspecified ankle and foot (principal); S99.911A Unspecified injury of right ankle, initial encounter; X58.XXXA Exposure to other specified factors, initial encounter | CPT/HCPCS: 73610; 73630 ==

== ENCOUNTER → 2023-06-24 10:45 | Outpatient (BNVA) | payer MEDICARE, MEDICAID, SELFPAY | PROVIDERS: PCP Registered Nurse; Visit Provider Podiatrist Foot & Ankle Surgery | DX: S82.401A Unspecified fracture of shaft of right fibula, initial encounter for closed fracture; S93.421A Sprain of deltoid ligament of right ankle, initial encounter; W11.XXXA Fall on and from ladder, initial encounter; B35.1 Tinea unguium; Z46.89 Encounter for fitting and adjustment of other specified devices; S82.891D Other fracture of right lower leg, subsequent encounter for closed fracture with routine healing; X58.XXXD Exposure to other specified factors, subsequent encounter | CPT/HCPCS: 73610; 97760; 99204; L4361 ==

== ENCOUNTER 2023-06-24 12:02 | Outpatient (CLI) | payer MEDICARE, MEDICAID, SELFPAY | END 2023-06-24 12:03 | disposition home or self-care (01) | LOC: SPT 12:02 | PROVIDERS: PCP Registered Nurse; Visit Provider Podiatrist Foot & Ankle Surgery | DX: Z46.89 Encounter for fitting and adjustment of other specified devices (principal); S82.891D Other fracture of right lower leg, subsequent encounter for closed fracture with routine healing; X58.XXXD Exposure to other specified factors, subsequent encounter | CPT/HCPCS: 97760; 99204; L4361 ==

== ENCOUNTER → 2023-07-25 10:55 | Outpatient (BNVA) | payer MEDICARE, MEDICAID, SELFPAY | PROVIDERS: PCP Registered Nurse; Visit Provider Podiatrist Foot & Ankle Surgery | DX: S93.421D Sprain of deltoid ligament of right ankle, subsequent encounter; X58.XXXD Exposure to other specified factors, subsequent encounter; S82.401D Unspecified fracture of shaft of right fibula, subsequent encounter for closed fracture with routine healing | CPT/HCPCS: 73610; 99213 ==

== ENCOUNTER 2023-10-31 13:00 | Outpatient (CLI) | payer MEDICARE, MEDICAID, SELFPAY ==
--- NOTE | 2023-10-31 13:30 | USCV_ITS ---
Cindy Zheng Age: 73 Gender: M : 1950 Exam Date: 10/31/2023 13:35 Ordering Phys: Victor Manuel Gray MD (Andy) ([email or web address]) Technologist: MARIMAR [place] [facility] [place]ication: Bilat Stenosis Risk Factors: Previous Vascular Surgery: Right Brachial BP: / Left Brachial BP: / Right Left Velocity (cm/s) Spectral Plaque Velocity (cm/s) Spectral Plaque Syst/Diast Broadening Syst/Diast Broadening 102.50/24.50 Prox CCA 78.90 / 26.80 85.60/ 18.40 Mid CCA 102.00/ 28.70 82.10/ 20.70 Distal CCA 181.10/ 40.00 62.40/ 17.00 Prox ICA 84.70 / 17.80 75.00/ 20.50 Mid ICA 81.20 / 21.00 89.60/ 22.90 Distal ICA 42.90 / 16.50 128.30 ECA 118.10 1.10 ICA/CCA 0.50 Antegrade Vertebral Antegrade 70.10/ 21.70 cm/s 41.40/ 10.80 cm/s Tri Subclavian Tri 133.4 146.6 0 0 FINDINGS comp 03/19/23 CONCLUSIONS Right ICA stenosis <50%. Moderate calcified atheromatous plaque right carotid bulb/ICA. Left ICA stenosis <50%. Moderate calcified atheromatous plaque left carotid bulb/ICA. Velocities in distal Left CCA decreased today compared to previous Intimal thickening in the common carotid arteries and internal carotid arteries bilaterally. Normal antegrade Doppler flow noted in the right vertebral artery. Normal antegrade Doppler flow noted in the left vertebral artery. Nagi Arzola MD (Electronically Signed) Final Date: 31 Oct 2023 17:31 S
== END 2023-10-31 13:01 | disposition home or self-care (01) ==
LOC: RAD 13:01
PROVIDERS: PCP Registered Nurse; Visit Provider Thoracic Surgery (Cardiothoracic Vascular Surgery)
DX: I65.23 Occlusion and stenosis of bilateral carotid arteries (principal)
CPT/HCPCS: 93880

== ENCOUNTER → 2023-11-03 10:52 | Outpatient (BNVA) | payer MEDICARE, MEDICAID, SELFPAY | PROVIDERS: PCP Registered Nurse; Visit Provider Thoracic Surgery (Cardiothoracic Vascular Surgery) | DX: I65.22 Occlusion and stenosis of left carotid artery (principal); F17.210 Nicotine dependence, cigarettes, uncomplicated; I10 Essential (primary) hypertension | CPT/HCPCS: 99213 ==

== ENCOUNTER → 2023-11-10 15:10 | Outpatient (BNVA) | payer MEDICARE, MEDICAID, SELFPAY | PROVIDERS: PCP Registered Nurse; Visit Provider Internal Medicine | DX: R06.02 Shortness of breath (principal); I25.810 Atherosclerosis of coronary artery bypass graft(s) without angina pectoris; I10 Essential (primary) hypertension; Z95.5 Presence of coronary angioplasty implant and graft; E03.9 Hypothyroidism, unspecified; K21.9 Gastro-esophageal reflux disease without esophagitis; F17.210 Nicotine dependence, cigarettes, uncomplicated | CPT/HCPCS: 99214 ==

== ENCOUNTER → 2024-06-03 09:33 | Outpatient (BNVA) | payer MEDICARE, MEDICAID, SELFPAY | PROVIDERS: PCP Registered Nurse; Referring Provider Registered Nurse; Visit Provider Physician Assistant | DX: M79.642 Pain in left hand; S69.92XA Unspecified injury of left wrist, hand and finger(s), initial encounter; X58.XXXA Exposure to other specified factors, initial encounter | CPT/HCPCS: 73130 ==

== ENCOUNTER 2024-06-03 10:11 | Outpatient (RCR) | payer MEDICARE, MEDICAID, SELFPAY | END 2024-06-22 23:59 | disposition home or self-care (01) | LOC: SOT 10:11 | PROVIDERS: PCP Registered Nurse; Visit Provider Physician Assistant | DX: S69.92XA Unspecified injury of left wrist, hand and finger(s), initial encounter (principal); X58.XXXA Exposure to other specified factors, initial encounter | CPT/HCPCS: 97110; 97140; 97165; 99203 ==

== ENCOUNTER → 2024-06-18 08:44 | Outpatient (BNVA) | payer MEDICARE, MEDICAID, SELFPAY | PROVIDERS: PCP Registered Nurse; Visit Provider Student in an Organized Health Care Education/Training Program | DX: S61.211A Laceration without foreign body of left index finger without damage to nail, initial encounter; S69.92XA Unspecified injury of left wrist, hand and finger(s), initial encounter; L03.012 Cellulitis of left finger; W31.1XXA Contact with metalworking machines, initial encounter | CPT/HCPCS: 99213 ==

== ENCOUNTER 2024-06-23 06:30 | Outpatient (RCR) | payer MEDICARE, MEDICAID, SELFPAY | END 2024-07-23 23:59 | disposition home or self-care (01) | LOC: SOT 06:30 | PROVIDERS: PCP Registered Nurse; Visit Provider Physician Assistant | DX: S69.92XA Unspecified injury of left wrist, hand and finger(s), initial encounter (principal); X58.XXXA Exposure to other specified factors, initial encounter | CPT/HCPCS: 97022; 97110; 97140 ==

== ENCOUNTER → 2024-07-15 08:34 | Outpatient (BNVA) | payer MEDICARE, MEDICAID, SELFPAY | PROVIDERS: PCP Registered Nurse; Visit Provider Registered Nurse | DX: I10 Essential (primary) hypertension (principal); E03.9 Hypothyroidism, unspecified | CPT/HCPCS: 80048; 80061; 84439; 84443; 85025 ==

== ENCOUNTER → 2024-07-20 10:07 | Outpatient (BNVA) | payer MEDICARE, MEDICAID, SELFPAY | PROVIDERS: PCP Registered Nurse; Visit Provider Registered Nurse | DX: L98.9 Disorder of the skin and subcutaneous tissue, unspecified (principal) | CPT/HCPCS: 88305 ==

== ENCOUNTER → 2024-08-03 10:58 | Outpatient (BNVA) | payer MEDICARE, MEDICAID, SELFPAY | PROVIDERS: PCP Registered Nurse; Visit Provider Registered Nurse | DX: L82.1 Other seborrheic keratosis (principal) | CPT/HCPCS: 88305 ==

== ENCOUNTER → 2024-08-16 12:56 | Outpatient (BNVA) | payer MEDICARE, MEDICAID, SELFPAY | PROVIDERS: PCP Registered Nurse; Visit Provider Internal Medicine | DX: R06.02 Shortness of breath (principal); I65.23 Occlusion and stenosis of bilateral carotid arteries; I25.810 Atherosclerosis of coronary artery bypass graft(s) without angina pectoris; I10 Essential (primary) hypertension; E03.9 Hypothyroidism, unspecified; K21.9 Gastro-esophageal reflux disease without esophagitis; Z87.891 Personal history of nicotine dependence | CPT/HCPCS: 99214 ==

== ENCOUNTER 2024-08-20 15:51 | Outpatient (CLI) | payer MEDICARE, MEDICAID, SELFPAY ==
--- NOTE | 2024-08-20 16:00 | USCV_ITS ---
Cindy Zheng Age: 74 Gender: M : 1950 Exam Date: 08/20/2024 16:03 Ordering Phys: Femi Wyman M.D ([email or web address]) Technologist: KIERRA Exam Location: [facility] [place] Indication: carotid stenosis Risk Factors: Previous Vascular Surgery: Right Brachial BP: / Left Brachial BP: / Right Left Velocity (cm/s) Spectral Plaque Velocity (cm/s) Spectral Plaque Syst/Diast Broadening Syst/Diast Broadening 90.60/ 25.80 Prox CCA 62.20 / 17.70 116.60/29.00 Mid CCA 88.80 / 26.70 116.60/29.00 Distal CCA 237.60/ 58.00 71.00/ 19.90 Prox ICA 65.80 / 11.30 92.90/ 25.40 Mid ICA 45.00 / 17.40 71.00/ 25.40 Distal ICA 41.10 / 14.90 113.00 ECA 62.30 0.60 ICA/CCA 0.30 Antegrade Vertebral Antegrade 41.50/ 12.10 cm/s 32.10/ 3.20 cm/s Tri Subclavian Tri 73.90 40.30 FINDINGS Comp 2023 CONCLUSIONS Right ICA stenosis <50%. Moderate atheromatous plaque right carotid bulb/ICA. Left ICA stenosis <50%. Moderate atheromatous plaque left carotid bulb/ICA. Intimal thickening in the common carotid arteries and internal carotid arteries bilaterally. Scattered plaque in both CCAs Increased velocities left Distal CCA approaching 70 percent stenosis by strict velocity criteria. Recommend CTA Normal antegrade Doppler flow noted in the right vertebral artery. Normal antegrade Doppler flow noted in the left vertebral artery. Nagi Arzola MD (Electronically Signed) Final Date: 20 August 2024 16:44 S
== END 2024-08-20 15:52 | disposition home or self-care (01) ==
LOC: RAD 15:53
PROVIDERS: PCP Registered Nurse; Visit Provider Internal Medicine
DX: I65.23 Occlusion and stenosis of bilateral carotid arteries (principal); R93.89 Abnormal findings on diagnostic imaging of other specified body structures
CPT/HCPCS: 93880

== ENCOUNTER 2024-08-25 12:31 | Outpatient (CLI) | payer MEDICARE, MEDICAID, SELFPAY | END 2024-08-25 12:32 | disposition home or self-care (01) | LOC: RT 12:32 | PROVIDERS: PCP Registered Nurse; Visit Provider Internal Medicine | DX: R06.02 Shortness of breath (principal) | CPT/HCPCS: 94010; 94726; 94729 ==

== ENCOUNTER → 2024-09-08 10:13 | Outpatient (BNVA) | payer MEDICARE, MEDICAID, SELFPAY | PROVIDERS: PCP Registered Nurse; Visit Provider Physician Assistant | DX: S69.92XA Unspecified injury of left wrist, hand and finger(s), initial encounter (principal); S61.211A Laceration without foreign body of left index finger without damage to nail, initial encounter; X58.XXXA Exposure to other specified factors, initial encounter | CPT/HCPCS: 99213 ==

== ENCOUNTER 2024-10-25 11:58 | Outpatient (CLI) | payer MEDICARE, MEDICAID, SELFPAY ==
--- NOTE | 2024-10-25 12:30 | CT_ITS ---
WS: [id number] CTA NECK TECHNIQUE: Contrast enhanced CTA of the neck with coronal and sagittal reformatted images and maximum intensity projection (MIP) images. NASCET criteria utilized. CLINICAL INFORMATION: Carotid Stenosis COMPARISON: 2022 and ultrasound 08/20/2024 DLP: 248.[address] scans at [place] use at least one of these dose optimization techniques: automated exposure control; mA and/or kV adjustment per patient size (includes targeted exams where dose is matched to clinical indication); or iterative reconstruction. FINDINGS: RIGHT: RIGHT common carotid artery is patent. Moderate calcified atheromatous disease RIGHT carotid bulb extending into the ICA. No significant RIGHT ICA stenosis. RIGHT ICA is patent to the skull base. LEFT: LEFT common carotid artery is patent. Moderate calcified atheromatous plaque LEFT carotid bulb. No significant LEFT ICA stenosis. LEFT ICA is patent to the skull base. Mild smooth tapered narrowing of distal LEFT CCA similar to previous. RIGHT dominant vertebral artery. Smaller but patent LEFT vertebral artery. LEFT carotid artery originates from the innominate. Paranasal sinuses are well aerated. Mastoid air cells are well aerated. Fibrosis in the lung apices. Stable 5 mm nodule RIGHT lung apex. CT/CT angio neck [id number] IMPRESSION: 1. Less than 50% ICA stenosis bilaterally. No significant progression compared to previous. 2. RIGHT dominant vertebral artery. Both vertebral arteries are patent. 3. No other acute findings.
[2024-10-25 12:41] LABS: Blood Urea Nitrogen 12 mg/dL (8-23)
[2024-10-25] MEDS: iohexol 350 mg/mL 500 mL Btl (per mL) IV (12:51)
== END 2024-10-25 11:59 | disposition home or self-care (01) ==
LOC: RAD 12:00
PROVIDERS: PCP Registered Nurse; Visit Provider Internal Medicine
DX: I65.23 Occlusion and stenosis of bilateral carotid arteries (principal); R93.89 Abnormal findings on diagnostic imaging of other specified body structures; J84.10 Pulmonary fibrosis, unspecified; R91.1 Solitary pulmonary nodule
CPT/HCPCS: 70498; 82565; 84520

== ENCOUNTER 2024-10-30 17:27 | Inpatient (IN) | payer MEDICARE, MEDICAID, SELFPAY ==
--- OUTSIDE RECORDS SUMMARY | 2024-10-30 14:19 | XMS_ITS | Encounter Summary ---
Author Organization [employer] Address [address] [place] [address] Care Team Providers Care Sweeper Brush Maker Machine Name Role Phone Noé Rosas, RIOS, Dank Yu Primary Care Pro vider Reason for Visit * Reason Comments Hip Pain Fall from ladder Encounter Details Date Type Department Care Team (Late st Contact Info) Description 10/30/2024 2:19 PM CDT - 10/30/2024 4:46 PM CDT Emergency [facility] Emergency Medicine [address] [place] [phone] Jordin Baker, DO [address] [place] [address] Discharge Disposition: Acute Care Hospital Social History Tobacco Use Types Packs/Day Years Used Date Smoking Tobacco: Every Day Cigarettes Smokeless Tobacco: Never Tobacco Cessation:Ready to Q uit: Not Asked; Counseling Given: Not Answered Alcohol Use Standard Drinks/Week Comments Never 0 (1 standard drink = 0.6 oz pur e alcohol) Feeling Safe Answer Date Recorded Are you in a relationship wi th someone who hurts you emotionally and/or physically? No 10/30/2024 Sex and Gender Information Value Date Recorded Sex Assigned at Not on file Legal Sex Male 2:30 AM DIRECTOR SUPPLY CHAIN Gender Identity Not on file Sexual Orientation Not on file documented as of this encounter Last Filed Vital Signs Vital Sign Reading Time Taken Comments Blood Pressure 120/60 10/30/2024 4:00 PM CDT Pulse 73 10/30/2024 4:00 PM CDT Temperature 36.4 C (97.5 F) 10/30/2024 4:00 PM CDT Respiratory Rate 16 10/30/2024 4:00 PM CDT Oxygen Saturation 97% 10/30/2024 4:00 PM CDT Inhaled Oxygen Concentration - - Weight 79.1 kg (174 lb 6.4 oz) 10/30/2024 2:16 P M CDT Height 167.6 cm (5' 6 ) 10/30/2024 2:16 PM CDT Body Mass Index 28.15 10/30/2024 2:16 PM CDT documented in this encounter Medications at Time of Discharge clopidogreL (PLAVIX) 75 mg Tablet Take 75 mg by mouth daily. FENOFIBRATE ORAL Take 160 mg by mouth daily. atorvastatin (LIPITOR) 40 mg tablet Take 40 mg by mouth daily. amLODIPine (NORVASC) 10 mg tablet Take 10 mg by mouth daily. levothyroxine 75 mcg tablet Take 75 mcg by mouth daily in the morning. aspirin (WEI CHEWABLE) 81 mg Tablet, Chewable Take 81 mg by mouth daily. acetaminophen (TYLENOL) 500 mg tablet Take 1,000 mg by mouth every 6 hours as needed. valsartan (DIOVAN) 80 mg tablet Take 80 mg by mouth daily. MAGNESIUM OXIDE ORAL Take 600 mg by mouth daily. documented as of this encounter ED Notes * Zoila Benson RN - 10/30/2024 4:30 PM CDT Dispatch contacted for transport. This author is working in an alternative role of registered nurse during this documentation. * Zoila Benson RN - 10/30/2024 2:09 PM CDT Cindy Zheng 74 y.o. male, arrived to the ED via TRANSPORTATION: private vehicle for complaints of Chief Complaint Patient presents with Hip Pain Fall from ladder Patient fell backwards off of a step ladder about 2 steps high and landed on the right hip. He has been having pain in the right hip radiating down the entire right leg since fall. He has been unableto bear weight since fall. No LOC. Vitals taken, patient placed on monitor, clothing removed as needed per policy, privacy provided to patient. Respiratory: WDL - Regular rhythm, symmetrical chest expansion, no dyspnea , Cardiac/Circulatory: WDL - No numbness or tingling, no chest pain , Skin: WDL - Normal color for ethnicity, skin intact, patient is Alert and Oriented x4, pain scale: 10/10, findings; bleeding: without any bleeding noted. Behavior during evaluation: appropriate. Belongings secured, patient Weapons assessment: denied possession of any weapons or firearms at this time. Patient comforted, all questions answered to the best of the staff's ability, education performed, and left patient in the room with the call light in reach, bed in lowest position, wheels locked, side rails up. This author is working in an alternative role of registered nurse during this documentation. * Jordin Baker DO - 10/30/2024 2:08 PM CDT HISTORY OF PRESENT ILLNESS History of Present Illness The patient is a 74-year-old male with acute onset of right hip pain radiating to his toes following a fall. Right Hip Pain - Acute onset of pain - Radiates to his toes - Unable to extend his leg due to discomfort - Morphine has previously provided pain relief Other Symptoms - Denies chest or abdominal pain - Denies shortness of breath Supplemental information: Diagnosed with COPD, he occasionally feels something lodged in his throat. No history of heartburn. SOCIAL HISTORY - Quit drinking 50 years ago PAST MEDICAL HISTORY REVIEWED MEDICAL: Patient has a past medical history of Bursitis, HTN (hypertension), Hyperlipidemia, Hypothyroidism,Thyroid disease, and TIA (transient ischemic attack). SURGICAL: Patient has a past surgical history that includes appendectomy; back surgery; spinal surgery; and ptca. ALLERGIES Codeine; Diph,pertuss(acel),tet vac(pf); and Penicillins PHYSICAL EXAM INITIAL VS BP: (!) 84/41 (10/30/24 1416), Heart Rate: 62 bpm (10/30/24 141), Resp: 16 (10/30/24 141), Pulse:62 (10/30/24 1500), Temp: 97.5 ??F (36.4 ??C) (10/30/24 141), Temp src: Temporal (10/30/241415), SpO2: 97 % (10/30/24 141), Height: 5' 6 (167.6 cm) (10/30/24 141), Weight: 79.1 kg (174 lb 6.4 oz) (10/30/241415), BMI (Calculated): (!) 28.16 (10/30/241415) No LMP for male patient. Blood pressure 120/60, pulse 73, temperature 97.5 ??F (36.4 ??C), temperature source Temporal, resp. rate 16, height 5' 6 (1.676 m), weight 79.1 kg (174 lb 6.4 oz), SpO2 97%. Physical Exam Vitals and nursing note reviewed. Constitutional: General: He is not in acute distress. Appearance: Normal appearance. He is normal weight. He is not ill-appearing, toxic-appearing or diaphoretic. HENT: Head: Normocephalic and atraumatic. Right Ear: External ear normal. Left Ear: External ear normal. Nose: Nose normal. No rhinorrhea. Mouth/Throat: Mouth: Mucous membranes are moist. Eyes: General: No scleral icterus. Extraocular Movements: Extraocular movements intact. Conjunctiva/sclera: Conjunctivae normal. Cardiovascular: Rate and Rhythm: Normal rate and regular rhythm. Pulses: Normal pulses. Pulmonary: Effort: Pulmonary effort is normal. Breath sounds: No stridor. No wheezing. Abdominal: General: Abdomen is flat. Musculoskeletal: General: Tenderness (right thigh) present. Normal range of motion. Cervical back: Normal range of motion and neck supple. Right lower leg: No edema. Left lower leg: No edema. Lymphadenopathy: Cervical: No cervical adenopathy. Skin: General: Skin is warm and dry. Capillary Refill: Capillary refill takes less than 2 seconds. Findings: No bruising or erythema. Neurological: General: No focal deficit present. Mental Status: He is alert and oriented to person, place, and time. Gait: Gait normal. Psychiatric: Mood and Affect: Mood normal. Behavior: Behavior normal. Physical Exam General Appearance: Normal. Vital signs: Within normal limits. HEENT: Within normal limits. Respiratory: Within normal limits. Extremities: No edema, no cyanosis. Back, Musculoskeletal: Pain in right hip radiating to toes, unable to straighten leg. Skin: Warm and dry, no rash. Neurological: Awake, alert, oriented x4, no focal deficit. DIAGNOSTICS LAB: BASIC METABOLIC PANEL - Abnormal Result Value SODIUM 137 POTASSIUM 4.2 CHLORIDE 105 CO2 22 CALCIUM 9.1 BUN 12 CREATININE 0.98 GLUCOSE 121 (*) GFR >60 ANION GAP 10 CBC WITH DIFFERENTIAL - Abnormal WBC 14.8 (*) RBC 4.10 (*) HEMOGLOBIN 11.9 (*) HEMATOCRIT 36.1 (*) MCV 88.0 MCH 29.0 MCHC 33.0 RDW 14.8 (*) RDW-STDEV 47.5 PLATELETS 326 MPV 8.8 (*) NEUTROPHILS 89 (*) LYMPHOCYTES 5 (*) MONOCYTES 5 EOSINOPHILS 0 (*) BASOPHILS 0 IMMATURE GRANULOCYTES 1 NEUTROPHIL ABSOLUTE 13.15 (*) LYMPHOCYTE ABSOLUTE 0.74 (*) MONOCYTE ABSOLUTE 0.79 EOSINOPHIL ABSOLUTE 0.00 (*) BASOPHILS ABSOLUTE 0.03 IMMATURE GRANULOCYTES ABSOLUTE 0.08 RADIOLOGY: XR PELVIS 1 OR 2 VW Radiologist Impression IMPRESSION: Please see below. Exam: XR PELVIS 1 OR 2 VW Date/Time of Exam: 10/30/2024 3:36 PM Reason For Exam: Fall;Fracture. Diagnosis: See Reason for Exam. Comparison: None. Findings: AP view of the pelvis demonstrates acute comminuted displaced right intertrochanteric femur fracture. There is approximately one third shaft diameter lateral displacement of the fracture apex. Medial displacement of lesser trochanteric avulsion fracture fragment. Diffuse osteopenia. Incomplete imaging posterior spinal fusion hardware of the lumbosacral junction. No acute fracture or secondary sign of dislocation is identified. Impression: 1. Acute, comminuted, displaced right intertrochanteric femur fracture. EKG: PROCEDURES Procedures MEDICAL DECISION MAKING AND PLAN OF CARE Assessment & Plan 1. Acute right hip pain: Pain radiates to toes following a fall. Unable to straighten leg due to pain. - Ordered x-ray of affected area - Administer morphine for pain management to facilitate x-ray Follow-up - None mentioned ED Course as of 10/30/24 1624 Sat October 30, 2024 1535 XR PELVIS 1 OR 2 VW Comminuted displaced fracture of the femur [NB] 1617 CBC With Differential(!) Elevated white count and mildly decreased hemoglobin [NB] 1623 BMP(!) Renal function stable electrolytes stable. [NB] ED Course User Index [NB] Jordin Baker DO Medical Decision Making Amount and/or Complexity of Data Reviewed Labs: Decision-making details documented in ED Course. Radiology: ordered. Decision-making details documented in ED Course. Risk Prescription drug management. Decision regarding hospitalization. Emergency major surgery. MDM Consults: orthopedics and hospitalist Time hospitalist paged: 10/30/2024 3:48 AM Name of hospitalist: Dr. Monroe Time orthopedist paged: 10/30/2024 3:48 PM Name of orthopedist: [facility], Dr. Johnson Medications Administered During the ED Stay from 10/30/2024 1408 to 10/30/2024 1624 Date/Time Order Dose Route Action 10/30/2024 1504 CDT morphine 4 mg/mL injection 4 mg 4 mg IV Given 10/30/2024 1536 CDT morphine 4 mg/mL injection 4 mg 4 mg IV Given . New Prescriptions for this Encounter LAST VS BP: 120/60 (10/30/24 1600), Heart Rate: 62 bpm (10/30/24 1416), Resp: 16 (10/30/24 1600), Pulse: 73(10/30/24 1600), Temp: 97.5 ??F (36.4 ??C) (10/30/24 1600), Temp src: Temporal (10/30/24 1600), SpO2: 97 % (10/30/24 1600) CLINICAL IMPRESSION Diagnosis None DISPOSITION, EDUCATION AND MEDICATION RECONCILIATION Medications reconciled. See after visit summary for patient education on discharged patients. ED Disposition ED Disposition Transfer Condition Stable User Jordin Baker DO Date/Time Sat October 30, 2024 3:47 PM Comment -- documented in this encounter Plan of Treatment Not on file documented as of this encounter Procedures Procedure Name Priority Date/Time Associated Diagnosis Comments CBC WITH DIFFERENTIAL Stat 10/30/2024 3:57 PM CDT BASIC METABOLIC PANEL Stat 10/30/2024 3:57 PM CDT XR PELVIS 1 OR 2 VW Stat 10/30/2024 3 :36 PM CDT documented in this encounter Results * (ABNORMAL) CBC WITH DIFFERENTIAL (10/30/2024 3:57 PM CDT) WBC 14.8(H) 4.2 - 9.1 K/uL 10/30/2024 4:06 PM [facility] RBC 4.10(L) 4.63 - 6.08 M/uL 10/30/2024 4:06 PM [facility] HEMOGLOBIN 11.9(L) 13.7 - 17.5 g/dL 10/30/2024 4:06 PM [facility] HEMATOCRIT 36.1(L) 40.1 - 51.0 % 10/30/2024 4:06 PM [facility] MCV 88.0 79.0 - 92.2 fL 10/30/2024 4:06 PM [facility] MCH 29.0 25.7 - 32.2 pg 10/30/2024 4:06 PM [facility] MCHC 33.0 32.3 - 36.5 g/dL 10/30/2024 4:06 PM [facility] RDW 14.8(H) 11.0 - 14.5 % 10/30/2024 4:06 PM [facility] RDW-STDEV 47.5 36.9 - 56.9 fL 10/30/2024 4:06 PM [facility] PLATELETS 326 130 - 400 K/uL 10/30/2024 4:06 PM [facility] MPV 8.8(L) 10.0 - 14.8 fL 10/30/2024 4:06 PM [facility] NEUTROPHILS 89(H) 34 - 68 % 10/30/2024 4:06 PM [facility] LYMPHOCYTES 5(L) 22 - 53 % 10/30/2024 4:06 PM [facility] MONOCYTES 5 5 - 12 % 10/30/2024 4:06 PM [facility] EOSINOPHILS 0(L) 1 - 7 % 10/30/2024 4:06 PM [facility] BASOPHILS 0 0 - 1 % 10/30/2024 4:06 PM [facility] IMMATURE GRANULOCYTES 1 % 10/30/2024 4:06 PM [facility] NEUTROPHIL ABSOLUTE 13.15(H) 1.78 - 5.38 K/uL 10/30/2024 4:06 PM [facility] LYMPHOCYTE ABSOLUTE 0.74(L) 1.20 - 3.40 K/uL 10/30/2024 4:06 PM [facility] MONOCYTE ABSOLUTE 0.79 0.30 - 0.82 K/uL 10/30/2024 4:06 PM [facility] EOSINOPHIL ABSOLUTE 0.00(L) 0.04 - 0.54 K/uL 10/30/2024 4:06 PM [facility] BASOPHILS ABSOLUTE 0.03 0.01 - 0.08 K/uL 10/30/2024 4:06 PM [facility] IMMATURE GRANULOCYTES ABSOLUTE 0.08 K/uL 10/30/2024 4:06 PM [facility] Blood Venipuncture / Unknown 10/30/2024 3:57 PM CDT 10/30/2024 4:00 PM CDT Jordin Baker DO HEMATOLOGY ORDERABLES [facility] R [id number] [address] [place] [id number] * (ABNORMAL) BASIC METABOLIC PANEL (10/30/2024 3:57 PM CDT) SODIUM 137 136 - 145 mmol/L 10/30/2024 4:19 PM [facility] POTASSIUM 4.2 3.5 - 5.1 mmol/L 10/30/2024 4:19 PM [facility] CHLORIDE 105 98 - 107 mmol/L 10/30/2024 4:19 PM [facility] CO2 22 22 - 29 mmol/L 10/30/2024 4:19 PM CDT [facility] CALCIUM 9.1 8.8 - 10.2 mg/dL 10/30/2024 4:19 PM CDT [facility] BUN 12 8 - 23 mg/dL 10/30/2024 4:19 PM T [facility] CREATININE 0.98 0.67 - 1.17 mg/dL 10/30/2024 4:19 PM T [facility] Comment:The GFR result is no t clinically significant on patients <18 or >70 years of age. GLUCOSE 121(H) 74 - 99 mg/dL 10/30/2024 4:19 PM T [facility] GFR >60 mL/min/1.7 3 sq meter 10/30/2024 4:19 PM [facility] Comment:eGFR calculated with 2020 CKD-EPI equation. Vegetarian diet, extremely high or low muscle mass, and may affect results. Cystatin C with Glomerular Filtration Rate is a suitable alternative for these patients. ANION GAP 10 5 - 20 mmol/L 10/30/2024 4:19 PM CDT [facility] Blood Venipuncture / Unknown 10/30/2024 3:57 PM CDT 10/30/2024 4:00 PM CDT Jordin Baker DO CHEMISTRY ORDERABLES Final Re [id number] [address] [place] [phone] * XR PELVIS 1 OR 2 VW (10/30/2024 3:36 PM CDT) Anatomical Region Laterality Modality Pelvis Computed Radiogr aphy 10/30/2024 3:36 PM CDT Impressions 10/30/2024 3:50 PM CDT IMPRESSION: Please see below. Exam: XR PELVIS 1 OR 2 VW Date/Time of Exam: 10/30/2024 3:36 PM Reason For Exam: Fall;Fracture. Diagnosis: See Reason for Exam. Comparison: None. Findings: AP view of the pelvis demonstrates acute comminuted displaced right intertrochanteric femur fracture. There is approximately one third shaft diameter lateral displacement of the fracture apex. Medial displacement of lesser trochanteric avulsion fracture fragment. Diffuse osteopenia. Incomplete imaging posterior spinal fusion hardware of the lumbosacral junction. No acute fracture or secondary sign of dislocation is identified. Impression: 1. Acute, comminuted, displaced right intertrochanteric femur fracture. Narrative Procedure Note Ryne Alonso MD - 10/30/2024 IMPRESSION: Please see below. Exam: XR PELVIS 1 OR 2 VW Date/Time of Exam: 10/30/2024 3:36 PM Reason For Exam: Fall;Fracture. Diagnosis: See Reason for Exam. Comparison: None. Findings: AP view of the pelvis demonstrates acute comminuted displaced right intertrochanteric femur fracture. There is approximately one third shaft diameter lateral displacement of the fracture apex. Medial displacement of lesser trochanteric avulsion fracture fragment. Diffuse osteopenia. Incomplete imaging posterior spinal fusion hardware of the lumbosacral junction. No acute fracture or secondary sign of dislocation is identified. Impression: 1. Acute, comminuted, displaced right intertrochanteric femur fracture. Jordin Baker DO DIAGNOSTIC IMAGING ORDERABLES Final Result documented in this encounter Visit Diagnoses Not on filedocumented in this encounter Administered Medications Inactive Administered Medications - up to 3 most recent administrations Medication Order MAR Action Action Date Dose Rate Site morphine 4 mg/mL injection 4 mg 4 mg, IV, ONE TIME ONLY, 1 dose, On 10/30/24 at 1445, Routine Given 10/30/2024 3:04 PM CDT 4 mg morphine 4 mg/mL injection 4 mg 4 mg, IV, ONE TIME ONLY, 1 dose, On 10/30/24 at 1545, Routine Given 10/30/2024 3:36 PM CDT 4 mg documented in this encounter Active and Recently Administered Medications Times are shown in CDT. Scheduled Medication Order 10/28/2024 10/29/2024 10/30/2024 morphine 4 mg/mL injection 4 mg (COMPLETED) 4 mg, IV, ONE TIME ONLY, 1 dose, On 10/30/24 at 1445, Routine 1504 (Given - Provid er: Zoila Benson RN) morphine 4 mg/mL injection 4 mg (COMPLETED) 4 mg, IV, ONE TIME ONLY, 1 dose, On 10/30/24 at 1545, Routine 1536 (Given - Provid er: Zoila Benson RN) documented in this encounter Care Teams Sweeper Brush Maker Machine Relationship Specialty Start Date End Date Noé Rosas, RIOS English [address] [place] [address] PCP - General NURSE PRACTITIONER 10/16/17 documented as of this encounter
--- OUTSIDE RECORDS SUMMARY | 2024-10-30 17:31 | XMS_ITS | Clinical Summary ---
Author Organization [facility] Address [address] [place] [address] Phone Care Team Providers Care Shellfish Processing Machine Tender Name Role Phone Noé Rosas, RIOS, Dank Yu Primary Care Pro vider Allergies Active Allergy Reactions Criticality Noted Date Comments Codeine Nausea and Vomiting Low 08/07/2019 Tetanus Toxoid Unknown 08/07/2019 Medications clopidogreL (PLAVIX) 75 mg Tablet Take 75 mg by mouth daily. Active hydroCHLOROthia zide 25 mg tablet Take 25 mg by mouth daily. Active lovastatin (MEVACOR) 10 mg tablet Take 10 mg by mouth daily. Active levothyroxine sodium (LEVOTHYROXINE ORAL) Take 75 mcg by mouth daily. Active aspirin (ECOTRIN EC) 81 mg Tablet, Delayed Release (E.C.) Take 81 mg by mouth daily. Active famotidine (PEPCID) 20 mg tablet Take 20 mg by mouth daily. Active atorvastatin (LIPITOR) 40 mg tablet Take 40 mg by mouth daily. Active amLODIPine (NORVASC) 10 mg tablet Take 10 mg by mouth daily. Active fenofibrate micronized (ANTARA) 130 mg Capsule Take 160 mg by mouth daily. Active acetaminophen (TYLENOL) 500 mg tablet Take 2 Tablets (1,000 mg) by mouth every 8 hours as needed for Pain. 180 Tablet 08/10/2019 Active Active Problems Problem Noted Date Diagnosed Date Cellulitis of left lower extremity 08/08/2019 Essential hypertension 08/08/2019 Other specified hypothyroidism 08/08/2019 Cigarette nicotine dependence without complicati on 08/08/2019 Social History Tobacco Use Types Packs/Day Years Used Date Smoking Tobacco: Every Day Cigarettes Smokeless Tobacco: Never Alcohol Use Standard Drinks/Week Comments Never 0 (1 standard drink = 0.6 oz pur e alcohol) Sex and Gender Information Value Date Recorded Sex Assigned at Not on file Legal Sex Male 10:01 AM CDT Gender Identity Not on file Sexual Orientation Not on file Last Filed Vital Signs Vital Sign Reading Time Taken Comments Blood Pressure 123/58 08/10/2019 8:13 AM MACHINERY CLEANER Pulse 72 08/10/2019 8:13 AM MACHINERY CLEANER Temperature 37.2 C (99 F) 08/10/2019 8:13 AM MACHINERY CLEANER Respiratory Rate 18 08/10/2019 8:13 AM MACHINERY CLEANER Oxygen Saturation 93% 08/10/2019 8:13 AM MACHINERY CLEANER Inhaled Oxygen Concentration - - Weight 88.2 kg (194 lb 8 oz) 08/07/2019 5:07 PM MACHINERY CLEANER Height 172.7 cm (5' 8 ) 08/07/2019 5:07 PM MACHINERY CLEANER Body Mass Index 29.57 08/07/2019 5:07 PM MACHINERY CLEANER Plan of Treatment Health Maintenance Due Date Last Done Comments DTAP/TDAP/TD VACCINES (1 - Tdap) 1970 PNEUMOCOCCAL VACCINE 50+ YEARS (1 of 2 - PCV) 06/28/18 71 COLORECTAL SCREENING 1996 Colorectal Cancer Screening 1996 FIT-DNA Q 3 years 1996 FIT/FOBT Q 1 year 1996 Flex Sig/CT Colonography Q 5 years 1996 ZOSTER VACCINE (1 of 2) 2001 INFLUENZA VACCINE (#1) 2024 RSV VACCINE (60+ or ) (1 - 1-dose 75+ series) 2026 Insurance UHC DUAL COMPLETE [facility] PPO D-SNP [place]ICAID [place] Advance Directives For more information, please contact: [phone] * Full Code (Latest Code Status on File) Date Activated Date Inactivated Comments 08/08/2019 12:30 PM 08/10/2019 12:20 PM Care Teams Shellfish Processing Machine Tender Relationship Specialty Start Date End Date Noé Rosas, RIOS English [address] [place] [address] PCP - General NURSE PRACTITIONER 10/16/17
--- OUTSIDE RECORDS SUMMARY | 2024-10-30 17:31 | XMS_ITS | Encounter Summary ---
Author Organization [facility] Address [address] [place] [address] Care Team Providers Care Attendant Child Activity Name Role Phone Noé Rosas, Dank NATION Primary Care Pro vider Encounter Details Date Type Department Care Team (Late st Contact Info) Description 10/16/2017 Ancillary Orders [facility] [address] [place] [id number] Dank Umanzor Sr., FNP [address] [place] [address] Right shoulder pain, unspecified chronicity Social History Tobacco Use Types Packs/Day Years Used Date Smoking Tobacco: Never Assessed Sex and Gender Information Value Date Recorded Sex Assigned at Not on file Legal Sex Male 10:01 AM CDT Gender Identity Not on file Sexual Orientation Not on file documented as of this encounter Plan of Treatment Not on file documented as of this encounter Results * XR SHOULDER 2+ VW RIGHT (10/16/2017 10:25 AM CDT) Anatomical Region Laterality Modality Upper Extremity Computed Radiogr aphy 10/16/2017 10:2 5 AM CDT Impressions 10/16/2017 10:34 AM CDT IMPRESSION: Please see below. Exam: XR SHOULDER 2+ VW RIGHT Date/Time of Exam: 10/16/2017 10:25 AM Reason For Exam: Right shoulder pain, unspecified chronicity. Findings: High-grade hypertrophic degenerative change AC joint with loose calcified bodies within this region of shoulder. No apparent acute osseous injury or subluxation. IMPRESSION: Advanced degenerative change. Narrative Procedure Note Shanell Singer MD - 10/16/2017 IMPRESSION: Please see below. Exam: XR SHOULDER 2+ VW RIGHT Date/Time of Exam: 10/16/2017 10:25 AM Reason For Exam: Right shoulder pain, unspecified chronicity. Findings: High-grade hypertrophic degenerative change AC joint with loose calcified bodies within this region of shoulder. No apparent acute osseous injury or subluxation. IMPRESSION: Advanced degenerative change. RIOS Barone Sr. DIAGNOSTIC IMAGIN G ORDERABLES Final Result documented in this encounter Visit Diagnoses Diagnosis Right shoulder pain, unspecified chronicity Right shoulder pain, unspecified chronicity documented in this encounter Care Teams Attendant Child Activity Relationship Specialty Start Date End Date Noé Rosas, RIOS English [address] [place] [address] PCP - General NURSE PRACTITIONER 10/16/17 documented as of this encounter
--- OUTSIDE RECORDS SUMMARY | 2024-10-30 17:31 | XMS_ITS | Encounter Summary ---
Author Organization [facility] Address [address] 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
--- OUTSIDE RECORDS SUMMARY | 2024-10-30 17:31 | XMS_ITS | Encounter Summary ---
Author Organization [employer] [facility] Address [address] [place] [address] Care Team Providers Care Seafood Specialist Name Role Phone Noé Rosas, RIOS, Dank Yu Primary Care Pro vider Encounter Details Date Type Department Care Team (Late st Contact Info) Description 04/05/2020 [facility] [address] [place] [address] Fatou Benson, HOTEL OPERATIONS MANAGER [address] [place] [address] Other infective bursitis, left knee; Other specified bacterial agents as the cause of diseases classified elsewhere Social History Tobacco Use Types Packs/Day Years Used Date Smoking Tobacco: Every Day Cigarettes Smokeless Tobacco: Never Alcohol Use Standard Drinks/Week Comments Never 0 (1 standard drink = 0.6 oz pur e alcohol) Sex and Gender Information Value Date Recorded Sex Assigned at Not on file Legal Sex Male 10:01 AM CDT Gender Identity Not on file Sexual Orientation Not on file COVID-19 Exposure Response Date Recorded In the last month, have you been in contact with someone who was confirmed or suspected to have Coronavirus / COVID-19? No / Unsure 04/05/2020 11:46 AM CDT documented as of this encounter Plan of Treatment Not on file documented as of this encounter Results * XR KNEE 3 VW LEFT (04/05/2020 12:10 PM CDT) Anatomical Region Laterality Modality Lower Extremity Computed Radiogr aphy 04/05/2020 12:1 1 PM CDT Impressions 04/05/2020 6:23 PM CDT IMPRESSION: Soft tissue swelling without evidence of an acute osseous abnormality. Mild degenerative changes. [id number] Narrative 04/05/2020 6:23 PM CDT Exam: XR KNEE 3 VW LEFT Date/Time of Exam: 04/05/2020 12:10 PM Reason For Exam: See Diagnosis. Diagnosis: Other infective bursitis, left knee; Other specified bacterial agents as the cause of diseases classified elsewhere. Comparison: 08/07/2019. Findings: There is focal infrapatellar soft tissue swelling at the level of the tibial tubercle. There is no evidence of an acute fracture or dislocation. There are mild degenerative changes. There is chronic extensor mechanism enthesopathy with a component of chronic ossification involving the distal patellar tendon. There is no apparent joint effusion. Procedure Note Meir Edwards, DO - 04/05/2020 Exam: XR KNEE 3 VW LEFT Date/Time of Exam: 04/05/2020 12:10 PM Reason For Exam: See Diagnosis. Diagnosis: Other infective bursitis, left knee; Other specified bacterial agents as the cause of diseases classified elsewhere. Comparison: 08/07/2019. Findings: There is focal infrapatellar soft tissue swelling at the level of the tibial tubercle. There is no evidence of an acute fracture or dislocation. There are mild degenerative changes. There is chronic extensor mechanism enthesopathy with a component of chronic ossification involving the distal patellar tendon. There is no apparent joint effusion. IMPRESSION: Soft tissue swelling without evidence of an acute osseous abnormality. Mild degenerative changes. [id number] Fatou [facility] DIAGNOSTIC IMAGING ORDERABL ES Final Result documented in this encounter Visit Diagnoses Diagnosis Other infective bursitis, left knee Other specified bacterial agents as the cause of diseases classified elsewhere Other infective bursitis, left knee Other specified bacterial agents as the cause of diseases classified elsewhere documented in this encounter Care Teams Seafood Specialist Relationship Specialty Start Date End Date Noé Rosas, RIOS [address] [place] [address] PCP - General NURSE PRACTITIONER 10/16/17 documented as of this encounter
--- OUTSIDE RECORDS SUMMARY | 2024-10-30 17:31 | XMS_ITS | Clinical Summary ---
Author Organization [facility] Address [address] Sim: Epic Prelude ADT [place] [address] Care Team Providers Care Clinical Implementation Specialist Name Role Phone Noé Rosas, HOSPITALIST NOCTURNIST PHYSICIAN, Dank Yu Primary Care Pro vider Allergies Active Allergy Reactions Criticality Noted Date Comments Codeine Other (See Comments) 10/30/2024 Makes me sick Diph,Pertuss(Acel),Tet Vac(Pf) Other (See Comments) 10/30/2024 Blood fights it off Penicillins Other (See Comments) 10/30/2024 Just messes with me Medications clopidogreL (PLAVIX) 75 mg Tablet Take 75 mg by mouth daily. Active FENOFIBRATE ORAL Take 160 mg by mouth daily. Active atorvastatin (LIPITOR) 40 mg tablet Take 40 mg by mouth daily. Active amLODIPine (NORVASC) 10 mg tablet Take 10 mg by mouth daily. Active levothyroxine 75 mcg tablet Take 75 mcg by mouth daily in the morning. Active aspirin (WEI CHEWABLE) 81 mg Tablet, Chewable Take 81 mg by mouth daily. Active acetaminophen (TYLENOL) 500 mg tablet Take 1,000 mg by mouth every 6 hours as needed. Active valsartan (DIOVAN) 80 mg tablet Take 80 mg by mouth daily. Active MAGNESIUM OXIDE ORAL Take 600 mg by mouth daily. Active Encounters Date Type Department Care Team Description 10/30/2024 2:19 PM CDT - 10/30/2024 4:46 PM CDT Emergency [facility] [address] [place] [address] Jordin Baekr DO Discharge Disposition: Acute Care Hospital 10/30/2024 Travel 10/05/2024 External Device Data [facility] ABSTRACTION Provider, Abstract 09/28/2024 External Device Data [facility]STRACTION Provider, Abstract 09/08/2024 External Device Data [facility]STRACTION Provider, Abstract 09/07/2024 2:11 PM CDT - 09/07/2024 11:59 PM CDT Hospital Encounter [facility] [address] [place] [address] Fatou Benson, HOSPITALIST NOCTURNIST PHYSICIAN Discharge Disposition: Home or Self Care 09/07/2024 Orders Only [facility] Admitting [address] [place] [phone] Fatou Benson, HOSPITALIST NOCTURNIST PHYSICIAN Acute upper respiratory infection, unspecified (Primary Dx) 08/30/2024 External Device Data [facility] ABSTRACTION Provider, Abstract 08/17/2024 External Device Data [facility]STRACTION Provider, Abstract from Last 3 Months Social History Tobacco Use Types Packs/Day Years [...] on file Legal 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 Gender Identity Not on file Sexual Orientation [...] Mass Index 28.15 10/30/2024 2:16 PM CDT Plan of Treatment Health Maintenance Due Date [...] ) (1 - 1-dose 75+ series) 2026 Procedures Procedure Name Priority Date/Time Associated Diagnosis Comments CBC WITH DIFFERENTIAL Stat 10/30/2024 3:57 PM CDT BASIC METABOLIC PANEL Stat 10/30/2024 3:57 PM CDT XR PELVIS 1 OR 2 VW Stat 10/30/2024 3 :36 PM CDT XR CHEST PA AND LATERAL 2 VW Routine 09/07/2024 2:20 PM CDT Acute upper respiratory infection, unspecified from Last 3 Months Results * (ABNORMAL) CBC WITH DIFFERENTIAL (10/30/2024 3:57 PM CDT) WBC 14.8(H) 4.2 - 9.1 K/uL 10/30/2024 4:06 PM [facility] RBC 4.10(L) 4.63 - 6.08 M/uL 10/30/2024 4:06 PM [facility] HEMOGLOBIN 11.9(L) 13.7 - 17.5 g/dL 10/30/2024 4:06 PM [facility] HEMATOCRIT 36.1(L) 40.1 - 51.0 % 10/30/2024 4:06 PM [facility] MCV 88.0 79.0 - 92.2 fL 10/30/2024 4:06 PM [facility] MCH 29.0 25.7 - 32.2 pg 10/30/2024 4:06 PM [facility] MCHC 33.0 32.3 - 36.5 g/dL 10/30/2024 4:06 PM [facility] RDW 14.8(H) 11.0 - 14.5 % 10/30/2024 4:06 PM [facility] RDW-STDEV 47.5 36.9 - 56.9 fL 10/30/2024 4:06 PM [facility] PLATELETS 326 130 - 400 K/uL 10/30/2024 4:06 PM [facility] MPV 8.8(L) 10.0 - 14.8 fL 10/30/2024 4:06 PM [facility] NEUTROPHILS 89(H) 34 - 68 % 10/30/2024 4:06 PM [facility] LYMPHOCYTES 5(L) 22 - 53 % 10/30/2024 4:06 PM [facility] MONOCYTES 5 5 - 12 % 10/30/2024 4:06 PM [facility] EOSINOPHILS 0(L) 1 - 7 % 10/30/2024 4:06 PM [facility] BASOPHILS 0 0 - 1 % 10/30/2024 4:06 PM [facility] IMMATURE GRANULOCYTES 1 % 10/30/2024 4:06 PM [facility] NEUTROPHIL ABSOLUTE 13.15(H) 1.78 - 5.38 K/uL 10/30/2024 4:06 PM [facility] LYMPHOCYTE ABSOLUTE 0.74(L) 1.20 - 3.40 K/uL 10/30/2024 4:06 PM [facility] MONOCYTE ABSOLUTE 0.79 0.30 - 0.82 K/uL 10/30/2024 4:06 PM [facility] EOSINOPHIL ABSOLUTE 0.00(L) 0.04 - 0.54 K/uL 10/30/2024 4:06 PM [facility] BASOPHILS ABSOLUTE 0.03 0.01 - 0.08 K/uL 10/30/2024 4:06 PM [facility] IMMATURE GRANULOCYTES ABSOLUTE 0.08 K/uL 10/30/2024 4:06 PM [facility] Blood Venipuncture / Unknown 10/30/2024 3:57 PM CDT 10/30/2024 4:00 PM CDT us Jordin Baker DO HEMATOLOGY ORDERABLES Final R esult [facility] CLIA # [id number] [address] [place] [id number] * (ABNORMAL) BASIC METABOLIC PANEL (10/30/2024 3:57 PM CDT) SODIUM 137 136 - 145 mmol/L 10/30/2024 4:19 PM [facility] POTASSIUM 4.2 3.5 - 5.1 mmol/L 10/30/2024 4:19 PM [facility] CHLORIDE 105 98 - 107 mmol/L 10/30/2024 4:19 PM [facility] CO2 22 22 - 29 mmol/L 10/30/2024 4:19 PM [facility] CALCIUM 9.1 8.8 - 10.2 mg/dL 10/30/2024 4:19 PM [facility] BUN 12 8 - 23 mg/dL 10/30/2024 4:19 PM [facility] CREATININE 0.98 0.67 - 1.17 mg/dL 10/30/2024 4:19 PM [facility] Comment:The GFR result is no t clinically significant on patients <18 or >70 years of age. GLUCOSE 121(H) 74 - 99 mg/dL 10/30/2024 4:19 PM [facility] GFR >60 mL/min/1.7 3 sq meter 10/30/2024 4:19 PM [facility] Comment:eGFR calculated with 2020 CKD-EPI equation. Vegetarian diet, extremely high or low muscle mass, and may affect results. Cystatin C with Glomerular Filtration Rate is a suitable alternative for these patients. ANION GAP 10 5 - 20 mmol/L 10/30/2024 4:19 PM CDT [facility] Blood Venipuncture / Unknown 10/30/2024 3:57 PM CDT 10/30/2024 4:00 PM CDT us Jordinvelvet Baker CHEMISTRY ORDERABLES Final Re sult [facility] CLIA # [id number] [address] [place] [id number] * XR PELVIS 1 OR 2 VW [...] Baker DO DIAGNOSTIC IMAGING ORDERABLES Final Result * XR CHEST PA AND LATERAL 2 VW (09/07/2024 2:20 PM CDT) Anatomical Region Laterality Modality Chest Computed Radiogr aphy 09/07/2024 2:20 PM CDT Impressions 09/07/2024 3:51 PM CDT IMPRESSION: Please see below. Exam: XR CHEST PA AND LATERAL 2 VW Date/Time of Exam: 09/07/2024 2:20 PM REASON FOR EXAM: See Diagnosis. DIAGNOSIS: Acute upper respiratory infection, unspecified. Findings: There is pulmonary hyperinflation with increased AP diameter to the chest the lateral view with flattening of the diaphragms. No discrete consolidation or infiltrate is identified. There is some minimal paratracheal thickening in the right lung base. There is no pneumothorax or pleural effusion. The heart size is at the upper limits of normal. The thoracic aorta is atherosclerotic. There is thoracic spondylosis. IMPRESSION: Pulmonary hyperinflation which may indicate underlying COPD/emphysema. Minimal peribronchial thickening right lung base which may represent mild bronchitis. Narrative Procedure Note Meir Wayne MD - 09/07/2024 IMPRESSION: Please see below. Exam: XR CHEST PA AND LATERAL 2 VW Date/Time of Exam: 09/07/2024 2:20 PM REASON FOR EXAM: See Diagnosis. DIAGNOSIS: Acute upper respiratory infection, unspecified. Findings: There is pulmonary hyperinflation with increased AP diameter to the chest the lateral view with flattening of the diaphragms. No discrete consolidation or infiltrate is identified. There is some minimal paratracheal thickening in the right lung base. There is no pneumothorax or pleural effusion. The heart size is at the upper limits of normal. The thoracic aorta is atherosclerotic. There is thoracic spondylosis. IMPRESSION: Pulmonary hyperinflation which may indicate underlying COPD/emphysema. Minimal peribronchial thickening right lung base which may represent mild bronchitis. Fatou [employer] DIAGNOSTIC IMAGING ORDERABL ES Final Result from Last 3 Months Insurance [facility] DUAL COMPLETE PPO DSNP [facility] [id number] MEDICAID [place] Care Teams Clinical Implementation Specialist Relationship Specialty Start Date End Date Noé Rosas, RIOS [address] [place] [address] PCP - General NURSE PRACTITIONER 10/16/17
--- OUTSIDE RECORDS SUMMARY | 2024-10-30 17:31 | XMS_ITS | Encounter Summary ---
Author Organization [employer] [facility] Address [address] [place] [address] Care Team Providers Care Senior Gis Analyst Name Role Phone Noé Rosas, RIOS, Dank Yu Primary Care Pro vider Encounter Details Date Type Department Care Team (Late st Contact Info) Description 05/31/2019 Ancillary Orders [employer] [facility] [address] [place] [id number] Fatou Benson, DEPARTMENT STORE MANAGER [address] [place] [address] Tendonitis of shoulder, right Social History Tobacco Use Types Packs/Day Years [...] Results * XR SHOULDER 2+ VW RIGHT (05/31/2019 2:43 PM SUPERVISOR ADULT EDUCATION) Anatomical Region Laterality Modality Upper Extremity Computed Radiogr aphy 05/31/2019 2:44 PM SUPERVISOR ADULT EDUCATION Impressions 05/31/2019 9:07 PM SUPERVISOR ADULT EDUCATION IMPRESSION: No acute osseous abnormality. Mild glenohumeral and advanced acromioclavicular joint degenerative changes. Calcific rotator cuff tendinopathy. [id number] Narrative 05/31/2019 9:07 PM SUPERVISOR ADULT EDUCATION Exam: XR SHOULDER 2+ VW RIGHT Date/Time of Exam: 05/31/2019 2:43 PM Reason For Exam: See Diagnosis. Diagnosis: Tendonitis of shoulder, right. Comparison: 10/16/2017. Findings: There is no evidence of an acute fracture or dislocation. There are mild glenohumeral and advanced acromioclavicular joint degenerative changes. There is a mild degree of calcific rotator cuff tendinopathy. The soft tissues appear grossly unremarkable. Procedure Note Meir Edwards, DO - 05/31/2019 Exam: XR SHOULDER 2+ VW RIGHT Date/Time of Exam: 05/31/2019 2:43 PM Reason For Exam: See Diagnosis. Diagnosis: Tendonitis of shoulder, right. Comparison: 10/16/2017. Findings: There is no evidence of an acute fracture or dislocation. There are mild glenohumeral and advanced acromioclavicular joint degenerative changes. There is a mild degree of calcific rotator cuff tendinopathy. The soft tissues appear grossly unremarkable. IMPRESSION: No acute osseous abnormality. Mild glenohumeral and advanced acromioclavicular joint degenerative changes. Calcific rotator cuff tendinopathy. [id number] Fatou [facility] DIAGNOSTIC IMAGING ORDERABL ES Final Result documented in this encounter Visit Diagnoses Diagnosis Tendonitis of shoulder, right Disorders of bursae and tendons in shoulder region, unspecified Tendonitis of shoulder, right Disorders of bursae and tendons in shoulder region, unspecified documented in this encounter Care Teams Senior Gis Analyst Relationship Specialty Start Date End Date Noé Rosas, RIOS [address] [place] [address] PCP - General NURSE PRACTITIONER 10/16/17 documented as of this encounter
[2024-10-30 17:45] VITALS: BP 142/67; PULSE 76; RESP 25; TEMP 36.6; O2SAT 95
[2024-10-30 17:47] VITALS: BMI 29.3
[2024-10-30 17:52] VITALS: RESP 14
[2024-10-30] MEDS: morphine 4 mg/mL SDV 1 mL IVP ×2 (17:52→21:22)
--- NOTE | 2024-10-30 17:59 | XRR_ITS ---
PROCEDURE INFORMATION: Exam: XR Chest Exam date and time: 10/30/2024 6:54 PM Age: 74 years old Clinical indication: Pre-operative exam; Respiratory screening exam; Prior surgery; Surgery date: 6+ months; Surgery type: Cardiac stent; Pre op clearance TECHNIQUE: Imaging protocol: Radiologic exam of the chest. Views: 1 view. COMPARISON: CT lung screening [id number] 03/29/2021 11:39 AM FINDINGS: Lungs: Unremarkable. No consolidation. Pleural spaces: Unremarkable. No pleural effusion. No pneumothorax. Heart/Mediastinum: Unremarkable. No cardiomegaly. Bones/joints: Unremarkable. XR/XR chest 1V portable [id number] IMPRESSION: No acute findings.
--- NOTE | 2024-10-30 18:03 | ECG_ITS ---
[facility] Test Date: 2024-10-30 Pat Name: Cindy Zheng Department: Room: 107 Gender: Male Deputy Felony Clerk: : 1950 Requested By: Ni Monroe Order Number: [id number] Ronan MD: Anita Donnelly M.D. Measurements Intervals [place] Rate: 69 P: 63 CO: 198 QRS: -3 QRSD: 81 T: 36 QT: 413 QTc: 445 Interpretive Statements SINUS RHYTHM NONSPECIFIC T-WAVE ABNORMALITY Compared to ECG 07/04/2022 10:09:41 T-wave abnormality now present Sinus bradycardia no longer present First degree AV block no longer present Electronically Signed On 10-31-2024 21:22:49 CDT by Anita Donnelly M.D. [email or web address]
[2024-10-30 18:12] LABS: Basophils % 0.2 %; Hematocrit 37.5 % (37-53); Lymphocytes # 0.9 10^3/uL (0.8-4.8); Mean Corpuscular HGB Conc 32.3 g/dL (30-55); Mean Corpuscular Hemoglobin 29.1 pg (27-33); Mean Corpuscular Volume 90.1 fl (82-101); Mean Platelet Volume 8.9 fL (7.4-10.4); Monocytes # 0.9 10^3/uL (0.2-0.9); Neutrophils % 85.4 %; Nucleated Red Blood Cells % 0 %; Platelet Count 336 10^3/cmm (157-399); Red Blood Count 4.16 10^6/uL (3.85-5.65); Red Cell Distribution Width 14.8 % (12.1-15.1); White Blood Count 13.24 10^3/uL (3.29-11.43)
[2024-10-30] MEDS: sodium chloride 0.9% 1,000 ML 75 ML IV (18:21)
[2024-10-30] MEDS: docusate sodium 100 mg Capsule PO (18:23)
[2024-10-30] MEDS: heparin 5,000 unit/mL INJ 1 mL 5000 UNIT SUBCUT (18:23)
[2024-10-30 18:39] LABS: Alanine Aminotransferase 10 U/L (0-41); Alkaline Phosphatase 66 U/L (40-130); Anion Gap 18.3 (5-19); Aspartate Amino Transferase 15 U/L (0-40); Blood Urea Nitrogen 12 mg/dL (8-23); Calcium 8.9 mg/dL (8.5-10.5); Carbon Dioxide 21 mmol/L (22-29); Chloride 104 mmol/L (98-107); Creatinine Clr Calc Pharmacy 76.1811; Globulin 2.5 g/dL (1.3-4.6); Glucose 111 mg/dL (65-115); NT Pro B Type Natriuretic Pept 93 pg/mL (0-125); Osmolality Calculated 288 mOsm/kg (285-295); Potassium 4.3 mmol/L (3.5-5.1); Sodium 139 mmol/L (136-145); Total Bilirubin 0.5 mg/dL (0.15-1.2); Total Protein 6.5 g/dL (6.6-8.7)
[2024-10-30 19:21] VITALS: BP 128/65; PULSE 73; RESP 20; TEMP 36.9; O2SAT 96
--- NOTE | 2024-10-30 19:25 | P.HP_ITS ---
Providers/Chief Complaint 2 Admitting Physician: Ni Monroe MD Primary Care Provider: RIOS Hills Chief Complaint: rt hip fracture History of Present Illness Cindy Zheng Jr is a 74 year old male past medical history of hypertension, CAD with prior LAD stent, daily active smoker, carotid stenosis who presented to the hospital today as a direct transfer from [facility] for right hip fracture. He states he was on a ladder 6 foot high with the caulk gun and as he was trying to caulk a crack very high he fell backwards from the ladder as he lost his balance. He landed on his right side and had to crawl 25 feet to get to his trailer. Subsequently a family member came and helped him into his truck and took him to the hospital. He has been in usual state of health and denies chest pain shortness of breath nausea vomiting diarrhea abdominal pain or any other symptoms at this time. He states he is currently in the process of building a building by himself. He is easily able to go up a flight of stairs without getting short of breath. Denies coughing or sputum production. Patient is on room air laying flat at this time. With family at bedside. 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 Sees Dr. Benson as primary care. Medications/Allergies Home Medications ?Medication ?Instructions ?Recorded ?Confirmed ?Last Taken ?Type aspirin 81 mg tablet,delayed 81 mg PO DAILY 08/25/19 0 10/30/24 10/30/24 History release acetaminophen 325 mg capsule 1,000 mg PO BID PRN Mild Pain 06/28/22 10/30/24 10/30/24 History (Scale Score 1-4) CAM boot #1 ea 06/24/23 10/30/24 Unkn own Rx magnesium oxide 400 mg (241.3 mg 600 mg PO DAILY 12/2810/30/24 10/30/24 History magnesium) tablet albuterol sulfate 90 mcg/actuation 2 puff inhalation 6 XD PRN 04/22/24 10/30/24 10/30/24 Rx aerosol inhaler shortness of breath or wheez ing #8.5 grams atorvastatin 40 mg tablet 40 mg PO DAILY 100 days #100 tabs 07/15/24 10/30/24 10/30/24 Rx citalopram 40 mg tablet 40 mg PO DAILY 90 days #90 t abs 07/15/24 10/30/24 10/30/24 Rx doxycycline hyclate 100 mg capsule 100 mg PO BID 7 day s #14 caps 09/07/24 10/30/24 10/30/24 Rx amlodipine 10 mg tablet 10 mg PO DAILY 10/30/2410/2110/30/24 History clopidogrel 75 mg tablet 75 mg PO DAILY 10/30/2410/2110/30/24 History fenofibrate 160 mg tablet 160 mg PO DAILY 10/30/2404/1610/30/24 History fluticasone furoate 100 1 inh inhalation DAILY 10/3010/30/24 10/30/24 History mcg-vilanterol 25 mcg/dose inhalation powder (Breo Ellipta) levothyroxine 75 mcg tablet 75 mcg PO DAILY 10/30/24 0 10/30/24 10/30/24 History valsartan 80 mg tablet 80 mg PO DAILY 10/30/2410/2110/30/24 History Allergies Allergy/AdvReac Type Severity Reaction Status Date / Time codeine Allergy Unknown Unknown Verified 10/30/24 18:40 Penicillins Allergy Unknown Unknown Verified 10/30/24 18:40 tetanus and diphtheria Allergy Unknown Unknown Verified 10/30/24 18:40 toxoids PFSH Acute 2 PFSH: Medical History Carotid stenosis, non-symptomatic Closed right fibular fracture Chronic low back pain without sciatica Septic infrapatellar bursitis of left knee Tendinopathy of right rotator cuff History of nonmelanoma skin cancer Erectile dysfunction GERD (gastroesophageal reflux disease) Seborrheic keratoses HTN (hypertension) Surgical History History of coronary artery stent placement 05/07/2011 S/P appendectomy History of back surgery S/P routine circumcision S/P vasectomy S/P angioplasty 05/07/2011 Family History Mother , Colon CA age 61 Hypertension Cancer Father , Liver CA age 61 Cancer Stroke Other CAD (coronary artery disease) Social History Smoking and tobacco/nicotine status: current every day tobacco/nicotine user cigarettes Packs smoked per day: 0.5 Alcohol intake: never Substance/Drug Use: never Adopted: No Caregiver/support person: No Lives independently: No Household members: significant other Current occupational status: disabled Do you think of yourself as: Straight/Heterosexual Current gender identity: Male Vitals/I&O/Wt Last Vital Signs Temp 98.4 F 10/30/24 19:21 Pulse 73 10/30/24 19:21 Resp 20 H 10/30/24 19:21 BP 128/65 10/30/24 19:21 Pulse Ox 96 10/30/24 19:21 O2 Del Method Room Air 10/30/24 19:21 Weight last 48 hrs Weight 85.049 kg Physical Exam 2 Narrative: General: Alert oriented x3, patient seen laying in bed appearing comfortable at this time. HEENT: Normocephalic, atraumatic, EOMI, breathing room air, laying flat. Cardio: Regular rate rhythm, normal S1-S2, Respiratory: Good bilateral air entry, no wheezes no rhonchi appreciated GI: Abdomen soft, nontender, nondistended, bowel sounds + Extremities: Trace edema bilateral lower extremities below the ankle. Right leg externally rotated and shortened. Data 10/31/24 03:38 10/31/24 03:38 A&P Assessment and plan (1) Hip fracture, right: (2) HTN (hypertension): (3) Coronary artery disease: (4) Carotid stenosis, non-symptomatic: (5) Hypothyroid: (6) GERD (gastroesophageal reflux disease): (7) Smoker: Plan #Right hip fracture #Hypertension #History of CAD with prior LAD stent #Active smoker #Nonsymptomatic carotid stenosis #COPD?not in exacerbation ? Continue patient on DuoNeb every 6 hours as needed ? Continue amlodipine 10 daily, aspirin 81 daily ? Patient's LAD stent was a number of years ago. Okay to hold Plavix at this time. ? Hold valsartan ? Continue levothyroxine ? Continue Pulmicort inhalation twice daily ? Continue atorvastatin, citalopram ? Patient did take steroids and doxycycline in August for an upper respiratory infection. At this point he is asymptomatic. ? Does have a leukocytosis 13,000 most likely reactive ? Creatinine 0.9 ? Check preop chest x-ray ? Order preop EKG. ? CTA neck from October 25, 2024 shows less than 50% ICA stenosis bilaterally. No significant progression compared to previous. Vertebral arteries are patent ? Patient had a stress test done April 2023 which shows overall normal left ventricular systolic function without regional wall motion abnormalities LVEF 70%. ?Continue heparin SQ twice daily for DVT prophylaxis - Consult orthopedic surgery. Dr. Johnson aware of patient. Make patient n.p.o. at midnight tonight in anticipation of possible surgery in AM. Will await further recommendations from orthopedic surgery. - Morphine 4 mg every 4 hours as needed for pain ? Start docusate sodium 100 twice daily Full code H prophylaxis: Heparin SQ twice daily PDMP PDMP Reviewed: Not Reviewed Attestations 2 Medical Necessity Statement*: Right hip fracture Diagnoses Hip fracture, right S72.001A Essential hypertension I10 Hypertension type: essential hypertension Coronary artery disease involving other coronary artery bypass graft without angina pectoris I25.810 Associated angina: without angina Coronary Disease-Associated Artery/Lesion type: bypass graft, other Asymptomatic stenosis of left carotid artery I65.22 Laterality: left Acquired hypothyroidism E03.9 Hypothyroidism type: acquired Gastroesophageal reflux disease without esophagitis K21.9 Esophagitis presence: without esophagitis Smoker F17.200
--- NOTE | 2024-10-30 21:15 | P.CONIM_ITS ---
Providers/Reason For Consult 2 Consulting Physician/Specialty*: Ayaan Johnson DO/orthopedic surgery Reason for Consult*: Right hip intertrochanteric femur fracture Requesting Physician: Dr. Monroe Attending Physician: Ni Monroe MD Primary Care Provider: RIOS [facility] History of Present Illness History of Present Illness Cindy Zheng Jr is a 74 year old male who sustained a fall off of a ladder he was only a couple feet up and then subsequently fell on directly onto his right hip and sustained a right hip fracture. He was unable to weight-bear he was seen at an outside facility at [facility]. At that time he was identified of having a right hip intertrochanteric femur fracture. At this point in time he was transferred to our facility internal medicine was primary for admission as well as orthopedics was consulted for hip fracture treatment recommendations. At this point in time patient denies any proceeding hip pain. Denies any loss of consciousness or chest pain or shortness of breath. Patient does take aspirin and Plavix at baseline. No other complaints at this time. Review of Systems 2 General: Reports: 10 or more systems reviewed and unremarkable except in HPI and below Medications/Allergies Home Medications ?Medication ?Instructions ?Recorded ?Confirmed ?Last Taken ?Type aspirin 81 mg tablet,delayed 81 mg PO DAILY 08/25/19 0 10/30/24 10/30/24 History release acetaminophen 325 mg capsule 1,000 mg PO BID PRN Mild Pain 06/28/22 10/30/24 10/30/24 History (Scale Score 1-4) CAM boot #1 ea 06/24/23 10/30/24 Unkn own Rx magnesium oxide 400 mg (241.3 mg 600 mg PO DAILY 12/2810/30/24 10/30/24 History magnesium) tablet albuterol sulfate 90 mcg/actuation 2 puff inhalation 6 XD PRN 04/22/24 10/30/24 10/30/24 Rx aerosol inhaler shortness of breath or wheez ing #8.5 grams atorvastatin 40 mg tablet 40 mg PO DAILY 100 days #100 tabs 07/15/24 10/30/24 10/30/24 Rx citalopram 40 mg tablet 40 mg PO DAILY 90 days #90 t abs 07/15/24 10/30/24 10/30/24 Rx doxycycline hyclate 100 mg capsule 100 mg PO BID 7 day s #14 caps 09/07/24 10/30/24 10/30/24 Rx amlodipine 10 mg tablet 10 mg PO DAILY 10/30/2410/2110/30/24 History clopidogrel 75 mg tablet 75 mg PO DAILY 10/30/2410/2110/30/24 History fenofibrate 160 mg tablet 160 mg PO DAILY 10/30/2404/1610/30/24 History fluticasone furoate 100 1 inh inhalation DAILY 10/3010/30/24 10/30/24 History mcg-vilanterol 25 mcg/dose inhalation powder (Breo Ellipta) levothyroxine 75 mcg tablet 75 mcg PO DAILY 10/30/24 0 10/30/24 10/30/24 History valsartan 80 mg tablet 80 mg PO DAILY 10/30/2410/2110/30/24 History Allergies Allergy/AdvReac Type Severity Reaction Status Date / Time codeine Allergy Unknown Unknown Verified 10/30/24 18:40 Penicillins Allergy Unknown Unknown Verified 10/30/24 18:40 tetanus and diphtheria Allergy Unknown Unknown Verified 10/30/24 18:40 toxoids Current Medications Generic Name Dose Route Start Last Admin Trade Name Freq PRN Reason Stop Dose Admin Docusate Sodium 100 mg 10/30/24 18:00 10/30/24 18:23 Docusate Sodium 100 Mg Capsule PO 100 mg BID IGNACIO Administration Heparin Sodium (Porcine) 5,000 unit 10/30/24 18:00 10/30/24 18:23 Heparin 5,000 Unit/Ml Inj 1 Ml SUBCUT 5,000 unit Q12H IGNACIO Administration Sodium Chloride 1,000 mls @ 75 mls/hr 10/30/24 17:45 10/30/24 18:21 Sodium Chloride 0.9% IV 75 mls/hr .[id number] IGNACIO Administration PFSH Acute 2 PFSH: Medical History Carotid stenosis, non-symptomatic Closed right fibular fracture Chronic low back pain without sciatica Septic infrapatellar bursitis of left knee Tendinopathy of right rotator cuff History of nonmelanoma skin cancer Erectile dysfunction GERD (gastroesophageal reflux disease) Seborrheic keratoses HTN (hypertension) Surgical History History of coronary artery stent placement 05/07/2011 S/P appendectomy History of back surgery S/P routine circumcision S/P vasectomy S/P angioplasty 05/07/2011 Family History Mother , Colon CA age 61 Hypertension Cancer Father , Liver CA age 61 Cancer Stroke Other CAD (coronary artery disease) Social History Smoking and tobacco/nicotine status: current every day tobacco/nicotine user cigarettes Packs smoked per day: 0.5 Alcohol intake: never Substance/Drug Use: never Adopted: No Caregiver/support person: No Lives independently: No Household members: significant other Current occupational status: disabled Do you think of yourself as: Straight/Heterosexual Current gender identity: Male Vitals/I&O/Wt Last Vital Signs Temp 98.4 F 10/30/24 19:21 Pulse 73 10/30/24 19:21 Resp 20 H 10/30/24 19:21 BP 128/65 10/30/24 19:21 Pulse Ox 96 10/30/24 19:21 O2 Del Method Room Air 10/30/24 19:21 Weight last 48 hrs Weight 187 lb 8 oz Physical Exam 2 Narrative: Patient is able to to follow commands and perform a standard?examination.?? Examination right lower extremity: Examination of the right lower extremity demonstrates patient has tenderness palpation of the right?hip?as well as the right lower extremity is shortened and externally rotated pt has positive logroll on?examination unable to perform Stinchfield's secondary to pain and discomfort.? Patient is able to wiggle toes, he is unable to plantarflex and dorsiflex ankle due to his pain as well as him saying he has had sciatic issues in the past with decreased ability of plantarflexion dorsiflexion of ankle, sensations intact to light touch distally.? Distal pulses are palpable right lower extremity is warm and well- perfused.? Mild swelling noted about the right?hip.?? Secondary survey?examination unremarkable For any acute pathology to the bilateral upper extremities or contralateral lower extremity.? pt? has no tenderness to palpation to the bilateral upper extremities joints and no noticeable deformities.? ?gross motor and sensory is intact to the bilateral upper extremities.? Contralateral lower extremity has tenderness to the?hip?knee or ankle with no appreciable deformities and is able to plantarflex and dorsiflex ankle sensations intact to light touch distally as well as wiggle toes.? Distal pulses palpable.? Negative pelvic compression test, no tenderness palpation of the spine. Data 10/30/24 18:04 10/30/24 18:04 Xray Ortho: Radiologist's impression: X-rays from outside facility demonstrate patient has a right intertrochanteric femur fracture no appreciable subtrochanteric extension. A&P Assessment and plan (1) Hip fracture, right: Plan Orthopedics?consulted Hospitalist admitted patient is primary Imaging reviewed?displaced right intertrochanteric femur fracture Labs reviewed Pain control Nonweightbearing right lower extremity May have a diet today N.p.o. at midnight Hold anticoagulation Plan to add on for surgery tomorrow for a right?hip short trochanteric femur nail MDM: Patient sedated 74-year-old male who sustained a fall and has a displaced right?hip?intertrochanteric femur fracture. Patient was transferred from outside [facility] admitted patient orthopedics was consulted. Patient ambulates at baseline without a cane crutch or walker. At this point time hospitalist is admitted patient. Patient has a right displaced intertrochanteric femur fracture. He took his Plavix this morning. We talked about timing of hip fracture fixation goals will be between 24 to 48 hours. At this point in time plan will be to get him fixed tomorrow which would be beyond the 24 hours of his last dosing which goals would be of lowering his transfusion rate however he understands waiting over the 48 hours shows no added benefit in fact possible increased risks at this point in time he understands and agrees to proceed with right hip trochanteric femur nail tomorrow. We discussed the ins and outs and the risk the benefits complication alternatives with surgical nonsurgical treatment options. Risk of surgery include but not limited to make it better make it worse, injury to nerves vessels or tendons, blood clot, postop anemia requiring transfusions, persistent pain decreased mobility, hip failure of hardware. Understanding risk of surgery patient understands and agrees with current plan.? All questions have been answered at this time.? Through shared decision-making patient elects to proceed with surgical intervention for a right?hip?trochanteric femur nail.? Benefits of treatment we talked at this time would be for early mobilization as well as pain control. Understanding this elects proceed with surgical intervention tomorrow all questions answered at this time. PDMP PDMP Reviewed: Not Reviewed Coding Level of Care Code Acute Code for g Fwd Diagnoses Hip fracture, right S72.001A Time Spent (min) 45
[2024-10-30 21:22] VITALS: RESP 16
--- NOTE | 2024-10-30 21:25 | XRR_ITS ---
PROCEDURE INFORMATION: Exam: XR Right Femur Exam date and time: 10/30/2024 9:35 PM Age: 74 years old Clinical indication: Thigh; Right; RT ankle/lat foot pain; No known injury; Additional info: Right hip FX preop planning TECHNIQUE: Imaging protocol: Radiologic exam of the right femur. Views: 2 views. COMPARISON: CR XR hip RT 2-3V wo/w pel* [id number] 10/30/2024 9:35 PM FINDINGS: Bones/joints: Osseous demineralization. Moderately displaced and comminuted right intertrochanteric hip fracture. No other fractures identified. Degenerative change of the right hip and knee. Soft tissues: Soft tissue swelling. XR/XR femur RT min 2V* [id number] IMPRESSION: Moderately displaced and comminuted right intertrochanteric hip fracture.
--- NOTE | 2024-10-30 21:25 | XRR_ITS ---
PROCEDURE INFORMATION: Exam: XR Right Hip Exam date and time: 10/30/2024 9:35 PM Age: 74 years old Clinical indication: Hip pain; Right hip; RT ankle/lat foot pain; No known injury; Additional info: Right hip FX TECHNIQUE: Imaging protocol: Radiologic exam of the right hip. Views: 1 view hip with pelvis when performed. COMPARISON: CR XR femur RT min 2V* [id number] 10/30/2024 9:35 PM FINDINGS: Bones/joints: Osseous demineralization. Comminuted right intertrochanteric hip fracture. No other definitive fractures identified. Degenerative changes of the hips. Soft tissues: Soft tissue swelling. XR/XR hip RT 2-3V wo/w pel* [id number] IMPRESSION: Comminuted right intertrochanteric hip fracture.
[2024-10-30] MEDS: tranexamic acid 1,000 MG/100 ML PREMIX 600 MG IV (22:31)
[2024-10-30] MEDS: ketorolac 30 mg/mL INJ IVP (22:31)
[2024-10-30 23:41] VITALS: BP 118/56; PULSE 73; RESP 23; TEMP 37; O2SAT 94
[2024-10-31] VITALS (23 sets, daily range): BP systolic 111–143; BP diastolic 55–76; PULSE 59–79; RESP 16–23; TEMP 36.3–37.3; O2SAT 90–100
[2024-10-31] MEDS: morphine 4 mg/mL SDV 1 mL IVP ×4 (01:16→19:31)
[2024-10-31 04:16] LABS: Basophils # 0.1 10^3/uL (0.0-0.1); Basophils % 0.6 %; Eosinophils # 0.1 10^3/uL (0.0-0.8); Hematocrit 33.7 % (37-53); Lymphocytes # 2.3 10^3/uL (0.8-4.8); Lymphocytes % 28.4 %; Mean Corpuscular HGB Conc 31.2 g/dL (30-55); Mean Corpuscular Volume 93.1 fl (82-101); Monocytes # 1.1 10^3/uL (0.2-0.9); Monocytes % 13.4 %; Neutrophils # 4.63 10^3/uL (1.8-7.7); Neutrophils % 56.2 %; Nucleated Red Blood Cells % 0 %; Platelet Count 251 10^3/cmm (157-399); Red Blood Count 3.62 10^6/uL (3.85-5.65); Red Cell Distribution Width 15.1 % (12.1-15.1); White Blood Count 8.23 10^3/uL (3.29-11.43)
[2024-10-31 04:28] LABS: INR 0.91 (0.8-1.2)
[2024-10-31 04:35] LABS: Blood Urea Nitrogen 12 mg/dL (8-23); Calcium 8.4 mg/dL (8.5-10.5); Carbon Dioxide 22 mmol/L (22-29); Chloride 106 mmol/L (98-107); Creatinine Clr Calc Pharmacy 84.4372; Glucose 100 mg/dL (65-115); Magnesium 2.1 mg/dL (1.7-2.3); Osmolality Calculated 286 mOsm/kg (285-295); Sodium 138 mmol/L (136-145)
[2024-10-31] MEDS: tranexamic acid 1,000 MG/100 ML PREMIX 600 MG IV (05:14)
[2024-10-31] MEDS: sodium chloride 0.9% 1,000 ML 75 ML IV (05:42)
[2024-10-31] MEDS: clindamycin 600 MG/50 ML PREMIX 100 MG IV (06:46)
[2024-10-31] MEDS: magnesium oxide 400 mg tablet 600 MG PO (07:58)
[2024-10-31] MEDS: atorvastatin 40 mg Tablet PO (07:59)
[2024-10-31] MEDS: levothyroxine 75 mcg Tablet PO (07:59)
[2024-10-31] MEDS: citalopram 20 mg Tablet 40 MG PO (07:59)
[2024-10-31] MEDS: docusate sodium 100 mg Capsule PO ×2 (07:59→16:07)
--- NOTE | 2024-10-31 10:43 | PC.NURSE ---
Patient off floor for hip surgery
--- NOTE | 2024-10-31 11:00 | W.PM.OPSUD ---
Surgery/Procedure H&P Update DATE OF PROCEDURE: October 31, 2024 DATE H&P PERFORMED: 10/30/24 H&P UPDATE INFORMATION: I have reviewed H&P completed within last 30 days, I have examined patient prior to procedure and No changes to prior documentation PREOP DIAGNOSIS: Right hip intertrochanteric femur fracture PRIMARY INDICATION FOR PROCEDURE: Right hip intertrochanteric femur fracture PLANNED PROCEDURE: Operation Date: 10/31/24 07:30 Proposed Procedures p Trochanteric Femoral Nail(Right) - Ayaan Johnson DO
[2024-10-31] MEDS: VANCOMYCIN ADD-Vantage 1,000 MG in 0.9% NaCl ADD-Vantage 250 ML 250 MG IV (11:22)
[2024-10-31] MEDS: tranexamic acid 1,000 mg/10mL SDV 1000 MG IV (12:00)
--- NOTE | 2024-10-31 12:06 | P.PN_ITS ---
Subjective 2 Subjective: seen this morning no acute events overnight npo since midnight denies cp, sob, plan for hip surgery today Vitals/I&O/Wt Last Vital Signs Temp 97.7 F 10/31/24 08:00 Pulse 74 10/31/24 10:49 Resp 16 10/31/24 10:49 BP 116/60 10/31/24 10:49 Pulse Ox 91 10/31/24 10:49 O2 Del Method Room Air 10/31/24 10:49 10/30/24 10/31/24 10/31/24 22:59 06:59 14:59 Intake Total 550 / 550 951.25 / 1501.25 50 / 50 Output Total 0 / 0 0 / 0 Balance 550 / 550 951.25 / 1501.25 50 / 50 Weight last 48 hrs Weight 82.327 kg Weight 85.049 kg Physical Exam 2 Narrative: General: Alert oriented x3 HEENT: Normocephalic, atraumatic, EOMI, breathing room air, laying flat. Cardio: Regular rate rhythm, normal S1-S2, Respiratory: Good bilateral air entry, no wheezes no rhonchi appreciated GI: Abdomen soft, nontender, nondistended, bowel sounds + Extremities: Trace edema bilateral lower extremities below the ankle. Right leg externally rotated and shortened. on room air saturating 94% Data 10/31/24 03:38 10/31/24 03:38 A&P Assessment and plan (1) Hip fracture, right: (2) HTN (hypertension): (3) Coronary artery disease: (4) Carotid stenosis, non-symptomatic: (5) Hypothyroid: (6) GERD (gastroesophageal reflux disease): (7) Smoker: Plan #Right hip fracture #Hypertension #History of CAD with prior LAD stent #Active smoker #Nonsymptomatic carotid stenosis #COPD?not in exacerbation ? Continue patient on DuoNeb every 6 hours as needed ? Continue amlodipine 10 daily, aspirin 81 daily ? Patient's LAD stent was a number of years ago. Okay to hold Plavix at this time. ? Hold valsartan ? Continue levothyroxine ? Continue Pulmicort inhalation twice daily ? Continue atorvastatin, citalopram ? Patient did take steroids and doxycycline in August for an upper respiratory infection. At this point he is asymptomatic. ? Does have a leukocytosis 13,000 most likely reactive ? Creatinine 0.9 ? Check preop chest x-ray ? Order preop EKG. ? CTA neck from October 25, 2024 shows less than 50% ICA stenosis bilaterally. No significant progression compared to previous. Vertebral arteries are patent ? Patient had a stress test done April 2023 which shows overall normal left ventricular systolic function without regional wall motion abnormalities LVEF 70%. ?Continue heparin SQ twice daily for DVT prophylaxis - Consult orthopedic surgery. Dr. Johnson aware of patient. Make patient n.p.o. at midnight tonight in anticipation of possible surgery in AM. Will await further recommendations from orthopedic surgery. - Morphine 4 mg every 4 hours as needed for pain ? Start docusate sodium 100 twice daily Full code H prophylaxis: Heparin SQ twice daily 10/31/2024 plan for hip surgery today continue to hold valsartan plan for hip surgery today with Dr. Johnson, procedure planned for 11 AM hold asa, plavix start dvt ppx post procedure continue docusate sodium PDMP PDMP Reviewed: Not Reviewed Attestations 2 Medical Necessity Statement*: hip surgery today Diagnoses Hip fracture, right S72.001A Essential hypertension I10 Hypertension type: essential hypertension Coronary artery disease involving other coronary artery bypass graft without angina pectoris I25.810 Coronary Disease-Associated Artery/Lesion type: bypass graft, other Associated angina: without angina Asymptomatic stenosis of left carotid artery I65.22 Laterality: left Acquired hypothyroidism E03.9 Hypothyroidism type: acquired Gastroesophageal reflux disease without esophagitis K21.9 Esophagitis presence: without esophagitis Smoker F17.200
--- NOTE | 2024-10-31 12:31 | W.PM.BPON ---
Date of Procedure: 10/31/2024 Surgeon: Ayaan Johnson DO Laundry Operator Finishing(s): Adarsh Johnson PA-C Procedure(s) performed: Right hip trochanteric femur nail Findings of the procedure(s): Patient found to have a right hip intertrochanteric femur fracture underwent procedure as planned without issues or complications taken recovery stable condition. Estimated blood loss: 75 mL Specimen(s) removed: None Post-operative diagnosis: Right hip intertrochanteric femur fracture
--- NOTE | 2024-10-31 12:32 | P.OP_ITS ---
Operative Report Date of procedure: October 31, 2024 Surgeon: Ayaan Johnson DO Therapeutic Support Staff: Adarsh Johnson PA-C: PA was necessary for assistance in this case with leg positioning assistance with reduction, retraction and protection of neurovascular structures as well as assistance in fracture fixation, implantation of hardware, wound closure and dressing application. Procedure: Preoperative diagnosis: Right displaced intertrochanteric femur fracture Post-op diagnosis: right displaced intertrochanteric femur fracture Procedure done: Right intertrochanteric femur fracture ORIF with cephalomedullary?nail Implants: [place] gamma?nail?short 11 mm x 180 mm x 125 degree Lag screw 10.5 mm x 105?mm Distal locking screw 5 mm x 37.5 mm Surgeon: Ayaan Johnson DO Estimated blood loss: 75 mL IV fluids: See anesthesia?record Urine output: See anesthesia?record Complications: See operative?report Findings: See operative?report narrative Condition: stable Disposition: Floor Brief History: Patient sustained a fall and was found to have a?right intertrochanteric hip fx.?Pt has?been unable to bear weight,?right hip/lower extremity shortened and externally?rotated.? At this point time Pt?was admitted by the hospitalist team and orthopedics was consulted.??Refer to consult note for detailed HPI.? We talked about treatment options as far as nonoperative and operative intervention.?Recommend?Right hip?trochanteric femur?nail.? At this point time patient would like to pursue surgical intervention for benefits of pain control and earlier mobilization.?? Patient understands the ins and outs of procedure, the?risk benefits complication alternatives of surgical nonsurgical treatment options.? Understanding?risk of surgery pt?agrees to proceed with surgical int ervention all questions answered.? Consent obtained in the preoperative holding area. Procedure: Patient seen evaluated in the preoperative holding area.? Consent was obtained.? Correct extremity was then marked.? Once cleared by anesthesia and the hospitalist team patient was taken back to the operative suite.? Patient underwent anesthesia per the anesthesia department.? Once appropriately anes thetized patient was placed on a fracture Gypsy table.? Patient was appropriately secured to the bed.? All bony prominences were well-padded.? At this point time patient?received appropriate preoperative antibiotics.? Final timeout was performed.? Prior to beginning surgery a standard closed?reduction maneuver was placed on the Gypsy table and large C-arm was brought in.? After performing a closed?reduction maneuver there was able to achieve satisfactory?reduction of?right intertrochanteric femur fracture.? Fracture site did not extend into the subtrochanteric?region as?result plan was for a short?nail.?? This point time the?right lower extremity was then prepped and draped in standard orthopedic fashion. A standard longitudinal incision was made just proximal to the greater?trochanter?roughly 4 cm in length sharp scalpel vision was made through skin and subcutaneous tissue.? I then utilized a blunt Richter to split? fascia and mobilized directly down to the greater?trochanter.? I then inserted my starting guidewire which was placed appropriate starting position the tip of the greater?trochanter.? This was advanced in AP and lateral films to be in center center position and advanced to the level lesser?trochanter.? This was confirmed to be in center center position on AP and lateral imaging.? Once this was done I then introduced my opening?reamer which was then subsequently guide p in?removed.? I selected a 11 mm x 180 mm x 125 degree. At this point time the?nail?was then loaded onto the [employer] gamma?trochanteric?nail?guide. I try to slide this down to the shaft however this was slightly tight at the isthmus and as a result I subsequently backed this out placed a long ball-tipped guidewire and sequentially reamed from an 11 to 12-13 which had excellent chatter and allowed for the 11 mm nail to pass. This was placed within the canal and confirmed with XR and the setscrew was then gently placed not locked.? The?nail?was then impacted to appropriate depth .? At this point time I then inserted my lag screw guide and subsequently made a small incision through skin and subcutaneous tissue splitting the IT band longitudinally and the guide was placed directly onto bone.? Next I then subsequently placed the guidewire in satisfactory position position in the head with an appropriate tip to apex distance this was confirmed with multiple orthogonal images.? I did err on keeping this lower in the neck for stronger bone and for better fixation given this was a more basicervical fracture pattern with the lesser being off. Once I was satisfied with my planned lag screw placement I then measured which was?105?mm.? I then set my cannulated drill and subsequently?reamed this into the head at appropriate depth.? I then had my?rep open the 10.5 mm x 105 mm lag screw which was then opened on the back table and subsequently screwed into place over my cannulated drill guide.? This was placed with excellent tip to apex distance.? Next I then utilized the compressing device and subsequently compressed my fracture after I let off traction.? This had excellent fracture compression and opposition and closing down to my fracture line.? Next I then locked the?nail?by locking my setscrew.? This point time the guidewire as well as the sleeve was then?removed.? Next I plan for statically locking the?nail?distally.? This triple sleeve was then placed a small stab incision was made blunt dissection directly down to bone and the guide sleeve was placed and locked directly onto the bone.? I then inserted the drill bit and subsequently drilled bicortically measured appropriate length screw and then placed a 37.5?mm distal interlocking screw and had excellent fixation was appropriate length.? This point time is completed my construct I?remove the outer jig and took final images of AP and lateral of the?right intertrochanteric femur fracture which showed stable?reduction and stable fixation.? Incision was then thoroughly irrigated.? Hemostasis was maintained with electrocautery.? I then once again thoroughly irrigated the incisions and then subsequently closed in layered fashion of 0 Vicryl 2-0 Vicryl and saul.? Silverlon dressings applied.? Patient was then awakened from anesthesia transported onto the hospital bed and taken to PACU in stable condition.? Patient tolerated procedure without complications. Disposition: Patient taken to PACU in stable condition.? Postoperatively,? Patient to?receive appropriate discharge instructions as well as pain medication DVT prophylaxis postoperatively.? Patient?will be allowed weightbearing as tolerated?right lower extremity.? Will?receive appropriate postoperative antibiotics, PT/OT.? Patient to follow-up in the orthopedic office in 2 weeks.? Patients family understands and agrees with current plan.? All questions answered.
--- NOTE | 2024-10-31 12:35 | P.ANESASSM_ITS ---
Pre-Anesthetic Assessment Height/Weight: Height 1.7 m Weight 82.327 kg Temp Pulse Resp BP Pulse Ox O2 Del Method 97.7 F 74 16 116/60 91 Room Air 10/31/24 08:00 10/31/24 10:49 10/31/24 10:49 10/31/24 10:49 10/31/24 10:49 10/31/24 10:49 Preop Diagnosis: Right hip intertrochanteric femur fracture Operation Date: 10/31/24 07:30 Proposed Procedures p Trochanteric Femoral Nail(Right) - Ayaan Mcpherson, DO Last intake: Intake Last Liquid Date 10/30/24 Last Solid Date 10/30/24 Social Tobacco and No alcohol Exam alert, oriented x 3, clear to auscultation bilaterally and regular rate & rhythm (slow rate ) Airway Submandibular: within normal limits Cervical ROM: within normal limits Mallampati: Class I Pulmonary Chronic Obstructive Pulmonary Disease, Cough and Shortness of Breath CV/HEM Coronary Artery Disease and Hypertension Metabolic Thyroid Disease Musc/skel Lower Back Pain (s/p lumbar surgery with hardware) Anesthetic Plan ASA status: 3E Anesthesia: General Medications/Allergies Home Medications ?Medication ?Instructions ?Recorded ?Confirmed ?Last Taken ?Type aspirin 81 mg tablet,delayed 81 mg PO DAILY 08/25/19 0 10/30/24 10/30/24 History release acetaminophen 325 mg capsule 1,000 mg PO BID PRN Mild Pain 06/28/22 10/30/24 10/30/24 History (Scale Score 1-4) CAM boot #1 ea 06/24/23 10/30/24 Unkn own Rx magnesium oxide 400 mg (241.3 mg 600 mg PO DAILY 12/2810/30/24 10/30/24 History magnesium) tablet albuterol sulfate 90 mcg/actuation 2 puff inhalation 6 XD PRN 04/22/24 10/30/24 10/30/24 Rx aerosol inhaler shortness of breath or wheez ing #8.5 grams atorvastatin 40 mg tablet 40 mg PO DAILY 100 days #100 tabs 07/15/24 10/30/24 10/30/24 Rx citalopram 40 mg tablet 40 mg PO DAILY 90 days #90 t abs 07/15/24 10/30/24 10/30/24 Rx doxycycline hyclate 100 mg capsule 100 mg PO BID 7 day s #14 caps 09/07/24 10/30/24 10/30/24 Rx amlodipine 10 mg tablet 10 mg PO DAILY 10/30/2410/2110/30/24 History clopidogrel 75 mg tablet 75 mg PO DAILY 10/30/2410/2110/30/24 History fenofibrate 160 mg tablet 160 mg PO DAILY 10/30/2404/1610/30/24 History fluticasone furoate 100 1 inh inhalation DAILY 10/3010/30/24 10/30/24 History mcg-vilanterol 25 mcg/dose inhalation powder (Breo Ellipta) levothyroxine 75 mcg tablet 75 mcg PO DAILY 10/30/24 0 10/30/24 10/30/24 History valsartan 80 mg tablet 80 mg PO DAILY 10/30/2410/2110/30/24 History Allergies Allergy/AdvReac Type Severity Reaction Status Date / Time codeine Allergy Unknown Unknown Verified 10/30/24 18:40 Penicillins Allergy Unknown Unknown Verified 10/30/24 18:40 tetanus and diphtheria Allergy Unknown Unknown Verified 10/30/24 18:40 toxoids Current Medications Generic Name Dose Route Start Last Admin Trade Name Freq PRN Reason Stop Dose Admin Atorvastatin Calcium 40 mg 10/31/24 09:00 10/31/24 07:59 Atorvastatin 40 Mg Tablet PO 40 mg On Hold: 10/31/24 10:39 DAILY IGNACIO Administration Comment: Order held by Process Transfer Citalopram Hydrobromide 40 mg 10/31/24 09:00 10/31/24 07:59 Citalopram 20 Mg Tablet PO 40 mg On Hold: 10/31/24 10:39 DAILY IGNACIO Administration Comment: Order held by Process Transfer Docusate Sodium 100 mg 10/30/24 18:00 10/31/24 07:59 Docusate Sodium 100 Mg Capsule PO 100 mg On Hold: 10/31/24 10:39 BID IGNACIO Administration Comment: Order held by Process Transfer Heparin Sodium (Porcine) 5,000 unit 10/30/24 18:00 10/31/24 05:18 Heparin 5,000 Unit/Ml Inj 1 Ml SUBCUT Not Given On Hold: 10/31/24 10:39 Q12H IGNACIO Comment: Order held by Process Transfer Sodium Chloride 1,000 mls @ 75 mls/hr 10/30/24 17:45 10/31/24 05:42 Sodium Chloride 0.9% IV 75 mls/hr On Hold: 10/31/24 10:39 .[id number] IGNACIO Administration Comment: Order held by Process Transfer Levothyroxine Sodium 75 mcg 10/31/24 09:00 10/31/24 07:59 Levothyroxine 75 Mcg Tablet PO 75 mcg On Hold: 10/31/24 10:39 DAILY IGNACIO Administration Comment: Order held by Process Transfer Magnesium Oxide 600 mg 10/31/24 09:00 10/31/24 07:58 Magnesium Oxide 400 Mg Tablet PO 600 mg On Hold: 10/31/24 10:39 DAILY IGNACIO Administration Comment: Order held by Process Transfer Morphine Sulfate 4 mg 10/30/24 17:43 10/31/24 05:12 Morphine 4 Mg/Ml Sdv 1 Ml IVP 4 mg On Hold: 10/31/24 10:39 Q4H PRN Administration Comment: Order held by Process [facility] Transfer [facility] Anesthesia Medical History Carotid stenosis, non-symptomatic Closed right fibular fracture Chronic low back pain without sciatica Septic infrapatellar bursitis of left knee Tendinopathy of right rotator cuff History of nonmelanoma skin cancer Erectile dysfunction GERD (gastroesophageal reflux disease) Seborrheic keratoses HTN (hypertension) Surgical History History of coronary artery stent placement 05/07/2011 S/P appendectomy History of back surgery S/P routine circumcision S/P vasectomy S/P angioplasty 05/07/2011 Family History Mother , Colon CA age 61 Hypertension Cancer Father , Liver CA age 61 Cancer Stroke Other CAD (coronary artery disease) Social History Smoking and tobacco/nicotine status: current every day tobacco/nicotine user cigarettes Packs smoked per day: 0.5 Alcohol intake: never Substance/Drug Use: never Adopted: No Caregiver/support person: No Lives independently: No Household members: significant other Current occupational status: disabled Do you think of yourself as: Straight/Heterosexual Current gender identity: Male Data Anesthesia 10/31/24 03:38 10/31/24 03:38 Short CBC 10/30/24 10/31/24 Range/Units 18:04 03:38 WBC 13.24 H 8.23 (3.29-11.43) 10^3/uL Hgb 12.10 10.50 L (11.27-16.99) g/dL Hct 37.5 33.7 L (37-53) % MCV 90.1 93.1 (82-101) fl Plt Count 336 251 (157-399) 10^3/cmm Neut % (Auto) 85.4 56.2 % Neut # (Auto) 11.30 H 4.63 (1.8-7.7) 10^3/uL BMP 10/30/24 10/31/24 18:04 03:38 Sodium 139 138 Potassium 4.3 4.0 Chloride 104 106 Carbon Dioxide 21 L 22 BUN 12 12 Creatinine 0.9 0.7 Glucose 111 100 Calcium 8.9 8.4 L Cardiac Enzymes 10/30/24 Range/Units 18:04 NT-Pro-B Natriuret Pep 93 (0-125) pg/mL Liver Function 10/30/24 Range/Units 18:04 Total Bilirubin 0.5 (0.15-1.2) mg/dL AST 15 (0-40) U/L ALT 10 (0-41) U/L Alkaline Phosphatase 66 (40-130) U/L Albumin 4.0 (3.5-5.2) g/dL Blood Bank 10/30/24 22:40 Blood Type A Positive Rho(D) Type Rh positive Antibody Screen Negative Coags 10/31/24 03:38 PT 12.90 INR 0.91 Cardiac Studies: 2 Sestamibi Stress Test (Cardiology) 04/24
--- NOTE | 2024-10-31 12:38 | XRR_ITS ---
PROCEDURE INFORMATION: Exam: XR Right Hip Exam date and time: 10/31/2024 1:00 PM Age: 74 years old Clinical indication: Injury or trauma; Fall; Other: Post-op right tfn; Prior surgery; Surgery date: Post-operative (0-2 days); Additional info: Right hip troch nail TECHNIQUE: Imaging protocol: Radiologic exam of the right hip. Views: 1 view hip with pelvis when performed. COMPARISON: CR XR hip RT 2-3V wo/w pel* [id number] 10/30/2024 9:35 PM FINDINGS: Bones/joints: There is a satisfactory appearance of the postoperative changes internal fixation of the right intertrochanteric femur fracture with short intramedullary irma, interlocking screw and dynamic hip screw. Soft tissues: Superficial skin saul are present. There is gas in the soft tissues. There is soft tissue edema. No unexpected foreign body. XR/XR hip RT 2-3V wo/w pel* [id number] IMPRESSION: Satisfactory postoperative changes.
--- NOTE | 2024-10-31 12:59 | PM.PACU ---
PACU note Narrative: Patient is a 74-year-old male who just underwent a right hip ORIF. Pt transferred to PACU in stable condition. Dressing is dry. pt is awake and alert. pt can wiggle toes. Distal pulses are palpable toes are warm and well-perfused. Cap refill is normal and under 2 seconds. Sensation to foot is intact. Pain is controlled. Exam: somnolent, arousable Disposition: back to floor
[2024-10-31] MEDS: clindamycin 900 MG/50 ML PREMIX 100 MG IV ×2 (13:59→23:39)
[2024-10-31] MEDS: iron polysaccharide complex 150 mg Capsule PO (16:07)
[2024-10-31] MEDS: TRAMadol 50 mg Tablet PO ×2 (16:07→23:38)
[2024-10-31] MEDS: calcium carb-vit d 600mg/400unit 1 Tablet 1 EACH PO (16:07)
[2024-10-31] MEDS: chlorhexidine gluconate 0.12% Btl 473 mL 30 ML MUCOUS MEM ×2 (16:08→21:25)
[2024-10-31] MEDS: mupirocin oint 22 gm 1 APPLIC NASAL (16:18)
--- NOTE | 2024-10-31 17:58 | PC.NURSE ---
Patient being transferred to OB department per data warehouse analyst. Report called to KARSTEN Rod.
--- NOTE | 2024-10-31 18:41 | PC.NURSE ---
pt arrived to the unit at 1835.
--- NOTE | 2024-10-31 21:17 | XR_ITS ---
WS: [id number] Exam: XR hip RT 2-3V wo/w pel* [id number] Date/Time of Exam: 10/31/2024 9:17 PM Reason For Exam: RT TFN; OR PICS Comparison 10/30/2024. Intraoperative C-arm images of the RIGHT hip are submitted. Intertrochanteric fracture of the RIGHT hip again noted. The fracture is stabilized with an intramedullary irma and femoral neck screw in satisfactory alignment for healing.
[2024-11-01] VITALS (11 sets, daily range): BP systolic 127–170; BP diastolic 62–80; PULSE 69–87; RESP 12–24; TEMP 36.6–37.2; O2SAT 80–94
[2024-11-01] MEDS: sodium chloride 0.9% 1,000 ML 75 ML IV (03:54)
[2024-11-01] MEDS: morphine 4 mg/mL SDV 1 mL IVP ×3 (04:13→18:27)
[2024-11-01 04:16] LABS: Basophils % 0.5 %; Eosinophils % 0.5 %; Hematocrit 30.3 % (37-53); Lymphocytes # 1.5 10^3/uL (0.8-4.8); Lymphocytes % 17.1 %; Mean Corpuscular Volume 90.7 fl (82-101); Mean Platelet Volume 9.1 fL (7.4-10.4); Monocytes # 1.1 10^3/uL (0.2-0.9); Monocytes % 13.1 %; Neutrophils # 5.94 10^3/uL (1.8-7.7); Neutrophils % 68.5 %; Nucleated Red Blood Cells % 0 %; Platelet Count 220 10^3/cmm (157-399); Red Blood Count 3.34 10^6/uL (3.85-5.65); White Blood Count 8.67 10^3/uL (3.29-11.43)
[2024-11-01 04:34] LABS: Blood Urea Nitrogen 11 mg/dL (8-23); Calcium 8.2 mg/dL (8.5-10.5); Carbon Dioxide 22 mmol/L (22-29); Chloride 105 mmol/L (98-107); Creatinine Clr Calc Pharmacy 84.4372; Glucose 120 mg/dL (65-115); Magnesium 1.9 mg/dL (1.7-2.3); Osmolality Calculated 287 mOsm/kg (285-295); Sodium 138 mmol/L (136-145)
[2024-11-01] MEDS: heparin 5,000 unit/mL INJ 1 mL 5000 UNIT SUBCUT ×2 (07:30→17:17)
[2024-11-01] MEDS: clindamycin 900 MG/50 ML PREMIX 100 MG IV (08:14)
[2024-11-01] MEDS: iron polysaccharide complex 150 mg Capsule PO ×2 (08:15→17:17)
[2024-11-01] MEDS: atorvastatin 40 mg Tablet PO (09:41)
[2024-11-01] MEDS: calcium carb-vit d 600mg/400unit 1 Tablet 1 EACH PO ×2 (09:41→17:17)
[2024-11-01] MEDS: citalopram 20 mg Tablet 40 MG PO (09:41)
[2024-11-01] MEDS: levothyroxine 75 mcg Tablet PO (09:41)
[2024-11-01] MEDS: docusate sodium 100 mg Capsule PO ×2 (09:42→17:16)
[2024-11-01] MEDS: magnesium oxide 400 mg tablet 600 MG PO (09:42)
[2024-11-01] MEDS: TRAMadol 50 mg Tablet PO (09:42)
[2024-11-01] MEDS: multivitamin therapeutic Tablet 1 TAB PO (09:42)
[2024-11-01] MEDS: chlorhexidine gluconate 0.12% Btl 473 mL 30 ML MUCOUS MEM ×3 (09:43→21:06)
--- NOTE | 2024-11-01 11:22 | XRR_ITS ---
PROCEDURE INFORMATION: Exam: XR Right Ankle Exam date and time: 11/01/2024 11:46 AM Age: 74 years old Clinical indication: Prior surgery; Surgery date: 1-6 months; Surgery type: Right foot/ankle; Pain in the foot/ankle post surgery; Additional info: Pain with PT TECHNIQUE: Imaging protocol: Radiologic exam of the right ankle. Views: 1 or 2 views. COMPARISON: CR XR ankle RT min 3V* [id number] 07/25/2023 11:00 AM FINDINGS: Bones/joints: No acute fracture or dislocation. Plantar and Achilles insertion enthesophytes. Moderate degenerative changes of the foot. Soft tissues: Normal. XR/XR ankle RT 2V [id number] IMPRESSION: No acute fracture or dislocation.
--- NOTE | 2024-11-01 11:26 | XRR_ITS ---
PROCEDURE INFORMATION: Exam: XR Right Foot Exam date and time: 11/01/2024 11:46 AM Age: 74 years old Clinical indication: Pain; Prior surgery; Surgery date: <1 month; Surgery type: Right foot/ankle; Additional info: Pain with PT TECHNIQUE: Imaging protocol: Radiologic exam of the right foot. Views: 1 or 2 views. COMPARISON: CR XR foot RT min 3V* [id number] 06/17/2023 1:07 PM FINDINGS: Bones/joints: Moderate degenerative changes of the 1st MTP joint. No acute fracture or dislocation. Plantar and Achilles insertion enthesophytes. Soft tissues: Normal. XR/XR foot RT 2V [id number] IMPRESSION: 1. 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 2. No acute fracture or dislocation.
--- NOTE | 2024-11-01 14:14 | P.PN_ITS ---
Subjective 2 Subjective: seen today says pain medication doesn't last very long he was able to get up with PT waiting for re-evaluation in afternoon if rehab is an option, he would be interested Vitals/I&O/Wt Last Vital Signs Temp 97.9 F 11/01/24 11:46 Pulse 74 11/01/24 12:55 Resp 18 11/01/24 12:55 BP 145/70 11/01/24 11:46 Pulse Ox 92 11/01/24 12:55 O2 Del Method Nasal Cannula 11/01/24 12:55 O2 Flow Rate 3 11/01/24 12:55 10/31/24 11/01/24 11/01/24 22:59 06:59 14:59 Intake Total 1300 / 1350 1100 / 1100 Output Total 200 / 275 325 / 600 125 / 125 Balance 1100 / 1075 -325 / 750 975 / 975 Weight last 48 hrs Weight 82.327 kg Weight 85.049 kg Physical Exam 2 Narrative: General: Alert oriented x3 HEENT: Normocephalic, atraumatic, EOMI, breathing room air, laying flat. Cardio: Regular rate rhythm, normal S1-S2, Respiratory: Good bilateral air entry, no wheezes no rhonchi appreciated GI: Abdomen soft, nontender, nondistended, bowel sounds + Extremities: Trace edema bilateral lower extremities below the ankle. hip surgery incision appears dry, no bleeding noted Data 11/01/24 03:57 11/01/24 03:57 A&P Assessment and plan (1) Hip fracture, right: (2) HTN (hypertension): (3) Coronary artery disease: (4) Carotid stenosis, non-symptomatic: (5) Hypothyroid: (6) GERD (gastroesophageal reflux disease): (7) Smoker: Plan #Right hip fracture #Hypertension #History of CAD with prior LAD stent #Active smoker #Nonsymptomatic carotid stenosis #COPD?not in exacerbation ? Continue patient on DuoNeb every 6 hours as needed ? Continue amlodipine 10 daily, aspirin 81 daily ? Patient's LAD stent was a number of years ago. Okay to hold Plavix at this time. ? Hold valsartan ? Continue levothyroxine ? Continue Pulmicort inhalation twice daily ? Continue atorvastatin, citalopram ? Patient did take steroids and doxycycline in August for an upper respiratory infection. At this point he is asymptomatic. ? Does have a leukocytosis 13,000 most likely reactive ? Creatinine 0.9 ? Check preop chest x-ray ? Order preop EKG. ? CTA neck from October 25, 2024 shows less than 50% ICA stenosis bilaterally. No significant progression compared to previous. Vertebral arteries are patent ? Patient had a stress test done April 2023 which shows overall normal left ventricular systolic function without regional wall motion abnormalities LVEF 70%. ?Continue heparin SQ twice daily for DVT prophylaxis - Consult orthopedic surgery. Dr. Johnson aware of patient. Make patient n.p.o. at midnight tonight in anticipation of possible surgery in AM. Will await further recommendations from orthopedic surgery. - Morphine 4 mg every 4 hours as needed for pain ? Start docusate sodium 100 twice daily Full code H prophylaxis: Heparin SQ twice daily 10/31/2024 plan for hip surgery today continue to hold valsartan plan for hip surgery today with Dr. Johnson, procedure planned for 11 AM hold asa, plavix start dvt ppx post procedure continue docusate sodium 11/01/2024 pt s/p hip surgery restart aspirin, plavix continue dvt ppx continue docusate sodium monitor hb hb appears stable however will recheck again tomorrow to ensure it is stable pain control safe discharge planning PDMP PDMP Reviewed: Not Reviewed Attestations 2 Medical Necessity Statement*: post op hip surgery Diagnoses Hip fracture, right S72.001A Essential hypertension I10 Hypertension type: essential hypertension Coronary artery disease involving other coronary artery bypass graft without angina pectoris I25.810 Coronary Disease-Associated Artery/Lesion type: bypass graft, other Associated angina: without angina Asymptomatic stenosis of left carotid artery I65.22 Laterality: left Acquired hypothyroidism E03.9 Hypothyroidism type: acquired Gastroesophageal reflux disease without esophagitis K21.9 Esophagitis presence: without esophagitis Smoker F17.200
--- NOTE | 2024-11-01 14:50 | P.PN_ITS ---
Vitals/I&O/Wt Last Vital Signs Temp 97.9 F 11/01/24 11:46 Pulse 74 11/01/24 12:55 Resp 18 11/01/24 12:55 BP 145/70 11/01/24 11:46 Pulse Ox 92 11/01/24 12:55 O2 Del Method Nasal Cannula 11/01/24 12:55 O2 Flow Rate 3 11/01/24 12:55 10/31/24 11/01/24 11/01/24 22:59 06:59 14:59 Intake Total 1300 / 1350 1100 / 1100 Output Total 200 / 275 325 / 600 125 / 125 Balance 1100 / 1075 -325 / 750 975 / 975 Weight last 48 hrs Weight 181 lb 8 oz Weight 187 lb 8 oz Physical Exam 2 Narrative: Right hip examination: Dressing on in place, clean dry and intact. No evidence of saturation. Patient has normal postoperative swelling and tenderness to palpation to the right hip. Compartments are soft compressible,'s calf soft and nontender. Sensations intact to light touch distally. Distal pulses are palpable. Patient is able to wiggle toes, patient is able to is able to subtly plantarflex and dorsiflex ankle As baseline. Patient has bilateral pitting edema to the bilateral lower extremities He does have tenderness palpation of the right foot and ankle. Data 11/01/24 03:57 11/01/24 03:57 Xray Ortho: Radiologist's impression: Ordering Provider/Ordering MD: Ayaan Johnson Date of Service: 10/31/24 Procedure(s): XR hip RT 2-3V wo/w pel* [id number] Accession Number(s): [id number] Report Number: [id number] PROCEDURE INFORMATION: Exam: XR Right Hip Exam date and time: 10/31/2024 1:00 PM Age: 74 years old Clinical indication: Injury or trauma; Fall; Other: Post-op right tfn; Prior surgery; Surgery date: Post-operative (0-2 days); Additional info: Right hip troch nail TECHNIQUE: Imaging protocol: Radiologic exam of the right hip. Views: 1 view hip with pelvis when performed. COMPARISON: CR XR hip RT 2-3V wo/w pel* [id number] 10/30/2024 9:35 PM FINDINGS: Bones/joints: There is a satisfactory appearance of the postoperative changes internal fixation of the right intertrochanteric femur fracture with short intramedullary irma, interlocking screw and dynamic hip screw. Soft tissues: Superficial skin saul are present. There is gas in the soft tissues. There is soft tissue edema. No unexpected foreign body. XR/XR hip RT 2-3V wo/w pel* [id number] IMPRESSION: Satisfactory postoperative changes. Ordering Provider/Ordering MD: Ayaan Johnson Date of Service: 11/01/24 Procedure(s): XR ankle RT 2V 60869 Accession Number(s): [id number] Report Number: [id number] PROCEDURE INFORMATION: Exam: XR Right Ankle Exam date and time: 11/01/2024 11:46 AM Age: 74 years old Clinical indication: Prior surgery; Surgery date: 1-6 months; Surgery type: Right foot/ankle; Pain in the foot/ankle post surgery; Additional info: Pain with PT TECHNIQUE: Imaging protocol: Radiologic exam of the right ankle. Views: 1 or 2 views. COMPARISON: CR XR ankle RT min 3V* [id number] 07/25/2023 11:00 AM FINDINGS: Bones/joints: No acute fracture or dislocation. Plantar and Achilles insertion enthesophytes. Moderate degenerative changes of the foot. Soft tissues: Normal. XR/XR ankle RT 2V 77705 IMPRESSION: No acute fracture or dislocation. Ordering Provider/Ordering MD: Ayaan Johnson Date of Service: 11/01/24 Procedure(s): XR foot RT 2V 44797 Accession Number(s): [id number] Report Number: [id number] PROCEDURE INFORMATION: Exam: XR Right Foot Exam date and time: 11/01/2024 11:46 AM Age: 74 years old Clinical indication: Pain; Prior surgery; Surgery date: <1 month; Surgery type: Right foot/ankle; Additional info: Pain with PT TECHNIQUE: Imaging protocol: Radiologic exam of the right foot. Views: 1 or 2 views. COMPARISON: CR XR foot RT min 3V* [id number] 06/17/2023 1:07 PM FINDINGS: Bones/joints: Moderate degenerative changes of the 1st MTP joint. No acute fracture or dislocation. Plantar and Achilles insertion enthesophytes. Soft tissues: Normal. XR/XR foot RT 2V 52494 IMPRESSION: 1. 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 2. No acute fracture or dislocation. A&P Assessment and plan (1) Hip fracture, right: Plan Orthopedics?consulted Hospitalist admitted patient is primary Imaging reviewed?stable right intertrochanteric femur fracture fixation. Labs reviewed PT/OT Weight-bear as tolerated right lower extremity Dressing change as needed DVT prophylaxis Pain control Complete postoperative antibiotics Orthopedics will continue to follow PDMP PDMP Reviewed: Not Reviewed Attestations 2 Medical Necessity Statement*: Ongoing care status post right hip trochanteric femur nail fixation Coding Level of Care Code Acute Code for [facility] Fwd Diagnoses Hip fracture, right S72.001A
[2024-11-01] MEDS: mupirocin oint 22 gm 1 APPLIC NASAL (17:17)
[2024-11-01] MEDS: amlodipine 5 mg Tablet 10 MG PO (19:19)
[2024-11-02 02:03] VITALS: BP 149/74; PULSE 79; RESP 20; TEMP 37.3; O2SAT 94
[2024-11-02 05:19] VITALS: RESP 20; O2SAT 97
[2024-11-02] MEDS: morphine 4 mg/mL SDV 1 mL IVP (05:19)
[2024-11-02 05:22] VITALS: BP 130/75; PULSE 88; RESP 20; TEMP 37; O2SAT 97
[2024-11-02] MEDS: heparin 5,000 unit/mL INJ 1 mL 5000 UNIT SUBCUT (05:56)
[2024-11-02 07:27] LABS: Basophils # 0.1 10^3/uL (0.0-0.1); Basophils % 0.5 %; Eosinophils # 0.1 10^3/uL (0.0-0.8); Eosinophils % 0.6 %; Hematocrit 32.9 % (37-53); Lymphocytes # 0.9 10^3/uL (0.8-4.8); Lymphocytes % 7.7 %; Mean Corpuscular HGB Conc 31.9 g/dL (30-55); Mean Corpuscular Hemoglobin 29.3 pg (27-33); Mean Corpuscular Volume 91.9 fl (82-101); Mean Platelet Volume 9.3 fL (7.4-10.4); Monocytes # 1.2 10^3/uL (0.2-0.9); Monocytes % 10.4 %; Neutrophils # 9.44 10^3/uL (1.8-7.7); Neutrophils % 80.2 %; Nucleated Red Blood Cells % 0 %; Platelet Count 248 10^3/cmm (157-399); Red Blood Count 3.58 10^6/uL (3.85-5.65); Red Cell Distribution Width 14.5 % (12.1-15.1); White Blood Count 11.78 10^3/uL (3.29-11.43)
[2024-11-02 07:48] LABS: Blood Urea Nitrogen 10 mg/dL (8-23); Calcium 9.3 mg/dL (8.5-10.5); Carbon Dioxide 22 mmol/L (22-29); Chloride 103 mmol/L (98-107); Creatinine Clr Calc Pharmacy 84.4372; Glucose 125 mg/dL (65-115); Magnesium 1.9 mg/dL (1.7-2.3); Osmolality Calculated 289 mOsm/kg (285-295); Sodium 139 mmol/L (136-145)
[2024-11-02] MEDS: chlorhexidine gluconate 0.12% Btl 473 mL 30 ML MUCOUS MEM (08:32)
[2024-11-02] MEDS: citalopram 20 mg Tablet 40 MG PO (08:33)
[2024-11-02] MEDS: TRAMadol 50 mg Tablet PO ×2 (08:33→12:53)
[2024-11-02] MEDS: levothyroxine 75 mcg Tablet PO (08:34)
[2024-11-02] MEDS: atorvastatin 40 mg Tablet PO (08:34)
[2024-11-02] MEDS: aspirin 81 mg EC Tablet PO (08:34)
[2024-11-02] MEDS: calcium carb-vit d 600mg/400unit 1 Tablet 1 EACH PO (08:34)
[2024-11-02] MEDS: magnesium oxide 400 mg tablet 600 MG PO (08:34)
[2024-11-02] MEDS: multivitamin therapeutic Tablet 1 TAB PO (08:34)
[2024-11-02] MEDS: amlodipine 5 mg Tablet 10 MG PO (08:35)
[2024-11-02] MEDS: docusate sodium 100 mg Capsule PO (08:35)
[2024-11-02] MEDS: iron polysaccharide complex 150 mg Capsule PO (08:35)
[2024-11-02] MEDS: mupirocin oint 22 gm 1 APPLIC NASAL (08:36)
[2024-11-02 09:49] VITALS: BP 127/68; PULSE 79; RESP 17; O2SAT 92
[2024-11-02] MEDS: fenofibrate 145 mg Tablet PO (09:50)
[2024-11-02 11:09] VITALS: PULSE 72; RESP 16; O2SAT 95
--- NOTE | 2024-11-02 11:39 | PM.DCS ---
Discharge Providers Date of Admission: 10/30/24 17:27 Date of Discharge: November 02, 2024 Attending Provider at Admission: Ni Monroe MD Attending Provider at Discharge: Ni Monroe MD Primary Care Provider: RIOS [place] Diagnoses at Discharge Discharge Diagnosis (1) Hip fracture, right: Status: Acute Reason for Visit Reason for Visit: rt hip fracture Hospital Course Hospital Course Patient presented to the hospital for a fall and was diagnosed with a right hip fracture. He underwent surgery. Postop hemoglobin has been stable and patient has been doing well. He will be discharged to rehab. DVT prophylaxis was given at time of discharge. Physical Exam Narrative: General: Alert oriented x3 HEENT: Normocephalic, atraumatic, EOMI, breathing room air, laying flat. Cardio: Regular rate rhythm, normal S1-S2, Respiratory: Good bilateral air entry, no wheezes no rhonchi appreciated GI: Abdomen soft, nontender, nondistended, bowel sounds + Extremities: Trace edema bilateral lower extremities below the ankle. hip surgery incision appears dry, no bleeding noted Discharge Data Studies Completed and Pending Completed Studies During Hospitalization Category Date Time Status XR ankle RT 2V [id number] Routine Exams 11/01/24 11:22 Completed XR chest 1V portable [id number] Stat Exams 10/30/24 17:59 Completed XR femur RT min 2V* [id number] Routine Exams 10/30/24 21:25 Completed XR foot RT 2V 66859 Routine Exams 11/01/24 11:26 Completed XR hip RT 2-3V wo/w pel* [id number] Routine Exams 10/30/24 21:25 Completed XR hip RT 2-3V wo/w pel* [id number] Routine Exams 10/31/24 12:38 Completed XR hip RT 2-3V wo/w pel* [id number] Routine Exams 10/31/24 21:17 Completed Radiology Impressions Chest X-Ray 10/30/24 17:59 IMPRESSION: No acute findings. Femur X-Ray 10/30/24 21:25 IMPRESSION: Moderately displaced and comminuted right intertrochanteric hip fracture. Ankle X-Ray 11/01/24 11:22 IMPRESSION: No acute fracture or dislocation. Foot X-Ray 11/01/24 11:26 IMPRESSION: 1. 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 2. No acute fracture or dislocation. Laboratory Results WBC 11.78 10^3/uL (3.29-11.43) H 11/02/24 07:07 RBC 3.58 10^6/uL (3.85-5.65) L 11/02/24 07:07 Hgb 10.50 g/dL (11.27-16.99) L 11/02/24 07:07 Hct 32.9 % (37-53) L 11/02/24 07:07 MCV 91.9 fl (82-101) 11/02/24 07:07 MCH 29.3 pg (27-33) 11/02/24 07:07 MCHC 31.9 g/dL (30-55) 11/02/24 07:07 RDW 14.5 % (12.1-15.1) 11/02/24 07:07 Plt Count 248 10^3/cmm (157-399) 11/02/24 07:07 MPV 9.3 fL (7.4-10.4) 11/02/24 07:07 Neut % (Auto) 80.2 % 11/02/24 07:07 Lymph % (Auto) 7.7 % 11/02/24 07:07 Clayton % (Auto) 10.4 % 11/02/24 07:07 Eos % (Auto) 0.6 % 11/02/24 07:07 Baso % (Auto) 0.5 % 11/02/24 07:07 Neut # (Auto) 9.44 10^3/uL (1.8-7.7) H 11/02/24 07:07 Lymph # (Auto) 0.9 10^3/uL (0.8-4.8) 11/02/24 07:07 Clayton # (Auto) 1.2 10^3/uL (0.2-0.9) H 11/02/24 07:07 Eos # (Auto) 0.1 10^3/uL (0.0-0.8) 11/02/24 07:07 Baso # (Auto) 0.1 10^3/uL (0.0-0.1) 11/02/24 07:07 Nucleated RBC % (auto) 0 % 11/02/24 07:07 Nucleated RBCs # 0.0 /100WBC 11/02/24 07:07 PT 12.90 SECONDS (12.1-14.9) 10/31/24 03:38 INR 0.91 (0.8-1.2) 10/31/24 03:38 Sodium 139 mmol/L (136-145) 11/02/24 07:07 Potassium 4.0 mmol/L (3.5-5.1) 11/02/24 07:07 Chloride 103 mmol/L (98-107) 11/02/24 07:07 Carbon Dioxide 22 mmol/L (22-29) 11/02/24 07:07 Anion Gap 18.0 (5-19) 11/02/24 07:07 BUN 10 mg/dL (8-23) 11/02/24 07:07 Creatinine 0.5 mg/dL (0.7-1.2) L 11/02/24 07:07 GFR Calculation Not Reportable 11/02/24 07:07 Glucose 125 mg/dL (65-115) H 11/02/24 07:07 Calculated Osmolality 289 mOsm/kg (285-295) 11/02/24 07:07 Calcium 9.3 mg/dL (8.5-10.5) 11/02/24 07:07 Magnesium 1.9 mg/dL (1.7-2.3) 11/02/24 07:07 Total Bilirubin 0.5 mg/dL (0.15-1.2) 10/30/24 18:04 AST 15 U/L (0-40) 10/30/24 18:04 ALT 10 U/L (0-41) 10/30/24 18:04 Alkaline Phosphatase 66 U/L (40-130) 10/30/24 18:04 NT-Pro-B Natriuret Pep 93 pg/mL (0-125) 10/30/24 18:04 Total Protein 6.5 g/dL (6.6-8.7) L 10/30/24 18:04 Albumin 4.0 g/dL (3.5-5.2) 10/30/24 18:04 Globulin 2.5 g/dL (1.3-4.6) 10/30/24 18:04 Blood Type A Positive 10/30/24 22:40 Rho(D) Type Rh positive 10/30/24 22:40 Antibody Screen Negative 10/30/24 22:40 Vitals Last Vital Signs Temp 98.6 F 11/02/24 05:22 Pulse 72 11/02/24 11:09 Resp 16 11/02/24 11:09 BP 127/68 11/02/24 09:49 Pulse Ox 95 11/02/24 11:09 O2 Del Method Room Air 11/02/24 11:09 O2 Flow Rate 2 11/02/24 05:22 Discharge Plan Discharge Patient Disposition: Xfer SNF Condition: Stable Prescriptions: New ondansetron 4 mg tablet,disintegrating 4 mg PO Q8H PRN (Reason: nausea and vomiting) 3 Days Qty: 9 0RF enoxaparin 30 mg/0.3 mL syringe 30 mg SUBCUT DAILY 35 Days Qty: 10.5 0RF multivitamin with folic acid [Thera] 400 mcg Tablet 1 tab PO DAILY Qty: 30 0RF polysaccharide iron complex [Ferrex 150] 150 mg iron Capsule 150 mg PO BIDWM Qty: 30 0RF docusate sodium 100 mg Capsule 100 mg PO BID Qty: 14 0RF calcium carbonate-vitamin D3 600 mg-10 mcg (400 unit) Tablet 1 tab PO BID Qty: 30 0RF tramadol 50 mg tablet 50 mg PO Q6H PRN (Reason: pain) 5 Days Qty: 20 0RF Continued aspirin 81 mg tablet,delayed release (DR/EC) 81 mg PO DAILY acetaminophen 325 mg capsule 1,000 mg PO BID PRN (Reason: Mild Pain (Scale Score 1-4)) magnesium oxide 400 mg (241.3 mg magnesium) tablet 600 mg PO DAILY albuterol sulfate 90 mcg/actuation HFA aerosol inhaler 2 puff inhalation 6XD PRN (Reason: shortness of breath or wheezing) Qty: 8.5 0RF atorvastatin 40 mg tablet 40 mg PO DAILY 100 Days Qty: 100 1RF citalopram 40 mg tablet 40 mg PO DAILY 90 Days Qty: 90 1RF (DME) CAM boot See Rx Instructions .Route .MEDSUPPLY Qty: 1 0RF Rx Instructions: As directed / weight bearing as tolerated valsartan 80 mg tablet 80 mg PO DAILY Rx Instructions: TAKE 1 TABLET BY MOUTH DAILY clopidogrel 75 mg tablet 75 mg PO DAILY Rx Instructions: TAKE 1 TABLET BY MOUTH DAILY levothyroxine 75 mcg tablet 75 mcg PO DAILY Rx Instructions: TAKE 1 TABLET BY MOUTH DAILY amlodipine 10 mg tablet 10 mg PO DAILY Rx Instructions: TAKE 1 TABLET BY MOUTH DAILY fenofibrate 160 mg tablet 160 mg PO DAILY Rx Instructions: TAKE 1 TABLET BY MOUTH DAILY fluticasone furoate-vilanterol [Breo Ellipta] 100-25 mcg/dose blister with device 1 inh inhalation DAILY Rx Instructions: INHALE 1 INHALATION BY MOUTH DAILY Discontinued doxycycline hyclate 100 mg capsule 100 mg PO BID 7 Days Qty: 14 0RF Discharge Orders: Discharge Order (Routine); Ordered 11/02/24 Ordered By: Ni Monroe Referrals: Fatou Benson FNP [Primary Care Provider, Family Practice] - 11/11/24 11:00 am Adarsh Johnson PA [Physician Oral Surgery Physician, Orthopedics] - 11/19/24 8:45 am Discharge Diet: Regular Discharge Activity: Limit activity as instructed Patient Instructions: Acute Wound Care (DC), ORIF of Hip Fracture (DC), OB Discharge Report, OB Food/Drug Interaction Guide, Post Anesthesia Care Activity Restrictions/Additional Instructions: Orthopedic discharge instructions: weightbearing as tolerated to the operative extremity Ice as needed for pain and swelling Encourage knee and hip range of motion as tolerated PT/OT Take pain medication as prescribed Take antinausea medication as needed Supplement with Citracal vitamin D for bone health and healing Take Lovenox (blood thinner) as prescribed for blood clot prevention Take Colace as needed for constipation Leave current dressing on for 2 days then replace with silverlon dressing and leave for 7 days. Leave Silverlon dressings on and in place for 7 days. After this they may be removed you may shower/rinse incisions with warm soapy water, pat dry redress with a dry dressing. Okay to sponge bath/shower with Silverlon dressings as they should be waterproof however if they do get saturated or wet please take these off dry the incision and redressed with a new dry sterile bandage. Follow-up in the orthopedic office with Dr. Johnson in 2 weeks for repeat x-rays and incision check/staple removal Contact the office for any questions or concerns (i.e. increasing redness and drainage around the incision, fevers, or chills, or severe worsening in pain/change in symptoms) Discharge Attestations Time Spent in Discharge Care*: less than 30 min Quality Metrics Clinical Quality Measures [ No reported AMI, CVA or VTE this stay] Coding Level of Care Code Acute Code for [facility] Fwd Diagnoses Hip fracture, right S72.001A
[2024-11-02 16:25] VITALS: BP 157/76; PULSE 83; RESP 16; TEMP 37.1; O2SAT 92
== END 2024-11-02 16:25 | disposition skilled nursing facility (03) | DRG 482 ==
LOC: CSU 10-31 09:14 → OBGYN 10-31 18:37
PROVIDERS: Student in an Organized Health Care Education/Training Program; Admitting Provider Internal Medicine; PCP Registered Nurse; Visit Provider Internal Medicine
PROC: 0QS606Z Reposition Right Upper Femur with Intramedullary Internal Fixation Device, Open Approach (ICD-10-PCS; CPT 27245; principal; 2024-10-31 09:05)
DX: S72.141A Displaced intertrochanteric fracture of right femur, initial encounter for closed fracture (principal); W11.XXXA Fall on and from ladder, initial encounter; I10 Essential (primary) hypertension; I25.10 Atherosclerotic heart disease of native coronary artery without angina pectoris; I65.29 Occlusion and stenosis of unspecified carotid artery; E03.9 Hypothyroidism, unspecified; K21.9 Gastro-esophageal reflux disease without esophagitis; J44.9 Chronic obstructive pulmonary disease, unspecified; F17.210 Nicotine dependence, cigarettes, uncomplicated; Z95.5 Presence of coronary angioplasty implant and graft; Z79.82 Long term (current) use of aspirin; Z79.02 Long term (current) use of antithrombotics/antiplatelets
CPT/HCPCS: 36415; 71045; 73502; 73552; 73600; 73620; 76000; 80048; 80053; 83735; 83880; 85025; 85610; 86850; 86900; 93005; 96372; 96376; 97116; 97161; 97167; 97530; 97535; C1713; J1644; J1885; J2270; J2371; J2704; J3010; J3370; J3490; J7030; J7050; J9999